=== PATIENT | female | born 1940 | race Caucasian/White ===

== ENCOUNTER 2017-05-08 15:00 | Inpatient (IN) | payer MEDICARE ==
[2017-05-08] MEDS ORDERED: HEPARIN for IV BOLUS 10,000 UNIT/10 ML VIAL. (15:16)
[2017-05-08] MEDS ORDERED: NITROGLYCERIN PREMIX 0 ML IV (15:16)
[2017-05-08] MEDS ORDERED: NITROGLYCERIN SUBLINGUAL 0.4 MG BOTTLE OF 25. SL ×3 (15:16→17:15)
[2017-05-08] MEDS ORDERED: HEPARIN 25,000UTS/500ML PREMIX 500 ML IV (15:17)
[2017-05-08 15:23] LABS: AGAP ISTAT 16 mmol/L (6-14); BUN ISTAT 16 mg/dL (8-26); CHLORIDE ISTAT 105 mmol/L (98-110); CREATININE ISTAT 1.1 mg/dL (0.5-1.4); GLUCOSE ISTAT 285 mg/dL (70-99); HEMATOCRIT ISTAT 40 % (36-40); HEMOGLOBIN ISTAT 13.6 g/dL (12-15); ION CA ISTAT 1.16 mmol/L (1.13-1.32); POTASSIUM ISTAT 4.1 mmol/L (3.5-5.0); SODIUM ISTAT 141 mmol/L (135-145); TOT CO2 ISTAT 25 mmol/L (23-32)
[2017-05-08] MEDS: ASPIRIN CHEWABLE 81 MG TABLET. PO ×2 (15:25→17:12)
[2017-05-08 15:27] LABS: ADD MAN DIFF? NO
[2017-05-08 15:28] LABS: BASO % 1 % (0-3); EOS # 0.1 x10^3/uL (0.0-0.7); EOS % 1 % (0-3); HEMATOCRIT 40.4 % (36.0-47.0); HEMOGLOBIN 13.2 g/dL (12.0-15.5); LYMPH # 1.4 x10^3/uL (1.0-4.8); LYMPH % 19 % (24-48); MEAN CORPUSCULAR HEMOGLOBIN 29 pg (25-35); MEAN CORPUSCULAR HGB CONC 33 g/dL (31-37); MEAN CORPUSCULAR VOLUME 90 fL (79-100); MONO # 0.7 x10^3/uL (0.0-1.1); MONO % 10 % (0-9); NEUT # 5.1 x10^3uL (1.8-7.7); NEUT % 70 % (31-73); PLATELET COUNT 195 x10^3/uL (140-400); RED BLOOD COUNT 4.49 x10^6/uL (3.50-5.40); RED CELL DISTRIBUTION WIDTH 14.5 % (11.5-14.5); WHITE BLOOD COUNT 7.4 x10^3/uL (4.0-11.0)
[2017-05-08 15:29] LABS: TROPONIN BY ISTAT 1.73 ng/ml (<0.08)
[2017-05-08] MEDS: HEPARIN for IV BOLUS 10,000 UNIT/10 ML VIAL. IV (15:29)
[2017-05-08] MEDS ORDERED: MORPHINE SULFATE 4 MG/ML DISP.SYRIN. IV ×2 (15:30→16:00)
[2017-05-08] MEDS ORDERED: ANTI-COAG MONITOR BY PHARMACY. MC (15:30)
[2017-05-08] MEDS ORDERED: LIDOCAINE 2% 20 ML VIAL. ×2 (15:36)
[2017-05-08] MEDS ORDERED: IOHEXOL 300 MG/ML 100ML VIAL. ×2 (15:36→16:15)
[2017-05-08] MEDS: HEPARIN 25,000UTS/500ML PREMIX 500 ML IV (15:39)
[2017-05-08 15:40] LABS: ANION GAP 10 (6-14); BLOOD UREA NITROGEN 16 mg/dL (7-20); CALCIUM 9.3 mg/dL (8.5-10.1); CARBON DIOXIDE 27 mmol/L (21-32); CHLORIDE 104 mmol/L (98-107); CREATININE 1.4 mg/dL (0.6-1.0); GFR 36.7; GLUCOSE 289 mg/dL (70-99); POTASSIUM 3.9 mmol/L (3.5-5.1); SODIUM 141 mmol/L (136-145)
[2017-05-08] MEDS ORDERED: MIDAZOLAM HCL/PF 2 MG/2 ML VIAL. (15:46)
[2017-05-08] MEDS ORDERED: fentaNYL PF VIAL 100 MCG/2 ML VIAL (15:46)
[2017-05-08 15:47] LABS: ALBUMIN 3.6 g/dL (3.4-5.0); ALK PHOS 82 U/L (46-116); ALT (SGPT) 33 U/L (14-59); AST (SGOT) 48 U/L (15-37); DIRECT BILIRUBIN < 0.1 mg/dL (0.0-0.2); LIPASE 107 U/L (73-393); TOTAL BILIRUBIN 0.4 mg/dL (0.2-1.0); TOTAL PROTEIN 7.6 g/dL (6.4-8.2)
[2017-05-08 15:48] LABS: PARTIAL THROMBOPLASTIN TIME 25 SEC (24-38); PROTHROMBIN TIME PATIENT 13.1 SEC (11.7-14.0)
[2017-05-08 15:51] LABS: TROPONINI 3.446 ng/mL (0.000-0.055)
[2017-05-08 15:52] LABS: NT-PRO BNP 1209 pg/mL (0-449)
[2017-05-08] MEDS: IV NORMAL SALINE 1000ML BAG 1,000 ML IV ×2 (16:00→17:46)
[2017-05-08] MEDS ORDERED: NITROGLYCERIN OINT 1 GM PACKET. (16:02)
[2017-05-08] MEDS: NITROGLYCERIN OINT 1 GM PACKET. TP (16:05)
[2017-05-08] MEDS ORDERED: BIVALIRUDIN 250 MG VIAL. IV (16:14)
[2017-05-08] MEDS: LIDOCAINE 2% 20 ML VIAL. IJ (16:15)
[2017-05-08] MEDS ORDERED: CONTRAST GIVEN MC (16:15)
[2017-05-08] MEDS: IOHEXOL 300 MG/ML 100ML VIAL. IART (16:15)
[2017-05-08] MEDS ORDERED: NITROGLYCERIN PREMIX 250 ML IV (16:19)
[2017-05-08] MEDS: NITROGLYCERIN PREMIX 250 ML IV ×3 (16:37→17:15)
[2017-05-08] MEDS ORDERED: TICAGRELOR 90 MG TABLET. (16:43)
[2017-05-08] MEDS: TICAGRELOR 90 MG TABLET. PO (17:12)
[2017-05-08] MEDS: BIVALIRUDIN 250 MG VIAL. IV (17:13)
[2017-05-08] MEDS: fentaNYL PF VIAL 100 MCG/2 ML VIAL IV (17:13)
[2017-05-08] MEDS ORDERED: LIDOCAINE 2% 100 MG/5 ML SYRINGE. IV (17:15)
[2017-05-08] MEDS ORDERED: ACETAMINOPHEN 325 MG TABLET. PO (17:15)
[2017-05-08] MEDS ORDERED: ATROPINE 0.5 MG/5 ML DISP.SYRINGE. IV (17:15)
[2017-05-08] MEDS ORDERED: 0.9 % SODIUM CHLORIDE 10 ML DISP.SYRIN. IV (17:15)
[2017-05-08] MEDS: LISINOPRIL 5 MG TABLET. PO ×3 (17:15→17:52)
[2017-05-08] MEDS ORDERED: AMIODARONE 150 MG in IV DEXTROSE 5% 100 ML IV (17:15)
[2017-05-08 19:45] LABS: TROPONINI 34.996 ng/mL (0.000-0.055)
[2017-05-08] MEDS: METOPROLOL TART IMMED RELEASE 25 MG TABLET. PO (20:26)
[2017-05-08] MEDS: ATORVASTATIN CALCIUM 20 MG TABLET PO (20:26)
[2017-05-09] MEDS: IV NORMAL SALINE 1000ML BAG 1,000 ML IV ×3 (02:00→19:27)
[2017-05-09 05:40] LABS: ADD MAN DIFF? NO
[2017-05-09 06:01] LABS: ANION GAP 9 (6-14); BLOOD UREA NITROGEN 12 mg/dL (7-20); CALCIUM 8.4 mg/dL (8.5-10.1); CARBON DIOXIDE 25 mmol/L (21-32); CHLORIDE 107 mmol/L (98-107); CHOLESTEROL 109 mg/dL (0-200); CHOLESTEROL/HDL RATIO 2.8; CREATININE 1.1 mg/dL (0.6-1.0); GFR 48.4; GLUCOSE 230 mg/dL (70-99); HDLC 39 mg/dL (40-60); LDLC 56 mg/dL (0-100); MAGNESIUM 1.4 mg/dL (1.8-2.4); NON-HDL CHOLESTEROL 70 mg/dL (0-129); POTASSIUM 3.7 mmol/L (3.5-5.1); SODIUM 141 mmol/L (136-145); TRIGLYCERIDES 70 mg/dL (0-150); VLDLC 14 mg/dL (0-40)
[2017-05-09 06:05] LABS: TROPONINI 17.158 ng/mL (0.000-0.055)
[2017-05-09] MEDS: fentaNYL PF VIAL 100 MCG/2 ML VIAL IV ×5 (06:06→23:32)
[2017-05-09 06:10] LABS: BASO % 0 % (0-3); EOS # 0.1 x10^3/uL (0.0-0.7); EOS % 2 % (0-3); HEMATOCRIT 31.1 % (36.0-47.0); LYMPH # 0.9 x10^3/uL (1.0-4.8); LYMPH % 17 % (24-48); MEAN CORPUSCULAR HEMOGLOBIN 29 pg (25-35); MEAN CORPUSCULAR HGB CONC 32 g/dL (31-37); MEAN CORPUSCULAR VOLUME 90 fL (79-100); MONO # 0.6 x10^3/uL (0.0-1.1); MONO % 12 % (0-9); NEUT # 3.8 x10^3uL (1.8-7.7); NEUT % 69 % (31-73); PLATELET COUNT 161 x10^3/uL (140-400); RED BLOOD COUNT 3.46 x10^6/uL (3.50-5.40); RED CELL DISTRIBUTION WIDTH 14.5 % (11.5-14.5); WHITE BLOOD COUNT 5.6 x10^3/uL (4.0-11.0)
[2017-05-09] MEDS: METOPROLOL TART IMMED RELEASE 25 MG TABLET. PO ×2 (07:59→21:42)
[2017-05-09] MEDS: ASPIRIN ENTERIC COATED 81 MG TABLET.DR. PO (07:59)
[2017-05-09] MEDS: TICAGRELOR 90 MG TABLET. PO ×2 (07:59→21:42)
[2017-05-09] MEDS: ONDANSETRON PF 4 MG/2 ML VIAL. IV (10:00)
[2017-05-09] MEDS: NITROGLYCERIN PREMIX 250 ML IV (11:00)
[2017-05-09 11:29] LABS: ALBUMIN 2.8 g/dL (3.4-5.0); ALBUMIN/GLOBULIN RATIO 0.8 (1.0-1.7); ALK PHOS 61 U/L (46-116); ALT (SGPT) 29 U/L (14-59); ANION GAP 11 (6-14); AST (SGOT) 55 U/L (15-37); BLOOD UREA NITROGEN 10 mg/dL (7-20); BUN/CREATININE RATIO 11 (6-20); CALCIUM 8.4 mg/dL (8.5-10.1); CARBON DIOXIDE 23 mmol/L (21-32); CHLORIDE 110 mmol/L (98-107); CREATININE 0.9 mg/dL (0.6-1.0); GLUCOSE 191 mg/dL (70-99); POTASSIUM 3.8 mmol/L (3.5-5.1); SODIUM 144 mmol/L (136-145); TOTAL BILIRUBIN 0.6 mg/dL (0.2-1.0); TOTAL PROTEIN 6.2 g/dL (6.4-8.2)
[2017-05-09] MEDS ORDERED: MIDAZOLAM HCL/PF 2 MG/2 ML VIAL. (12:05)
[2017-05-09] MEDS ORDERED: fentaNYL PF VIAL 100 MCG/2 ML VIAL (12:05)
[2017-05-09] MEDS: LIDOCAINE 2% 20 ML VIAL. IJ (12:15)
[2017-05-09] MEDS: IODIXANOL 320 MG/ML 100 ML VIAL. IART (12:15)
[2017-05-09] MEDS ORDERED: HEPARIN for IV BOLUS 10,000 UNIT/10 ML VIAL. (12:23)
[2017-05-09] MEDS ORDERED: hydrALAZINE 20 MG/ML VIAL. (12:42)
[2017-05-09] MEDS: MIDAZOLAM HCL/PF 2 MG/2 ML VIAL. IV (13:09)
[2017-05-09] MEDS: NITROGLYCERIN 200 MCG/2 ML SYRINGE FOR CATH/VASC LAB. IART (13:10)
[2017-05-09] MEDS: HEPARIN for IV BOLUS 10,000 UNIT/10 ML VIAL. IART (13:10)
[2017-05-09] MEDS: hydrALAZINE 20 MG/ML VIAL. IVP (13:10)
[2017-05-09] MEDS ORDERED: IOHEXOL 300 MG/ML 100ML VIAL. (13:25)
[2017-05-09] MEDS ORDERED: LIDOCAINE 2% 20 ML VIAL. (13:25)
[2017-05-09 14:15] LABS: ISTAT ACT 205 sec (92-181)
[2017-05-09 15:26] LABS: ISTAT ACT 172 sec (92-181)
[2017-05-09 18:15] LABS: MRSA BY PCR Negative (Negative)
[2017-05-09] MEDS: ATORVASTATIN CALCIUM 20 MG TABLET PO (21:42)
[2017-05-09] MEDS ORDERED: DEXTROSE 50% 25 GM / 50ML DISP.SYRIN. IV (23:15)
[2017-05-09] MEDS: ZOLPIDEM 5 MG TABLET. PO (23:18)
[2017-05-09 23:44] LABS: POC GLUCOSE 183 mg/dL (70-99)
[2017-05-10 03:20] LABS: ADD MAN DIFF? NO
[2017-05-10 03:27] LABS: BASO % 0 % (0-3); EOS # 0.1 x10^3/uL (0.0-0.7); EOS % 2 % (0-3); HEMOGLOBIN 10.2 g/dL (12.0-15.5); LYMPH # 0.9 x10^3/uL (1.0-4.8); LYMPH % 19 % (24-48); MEAN CORPUSCULAR HEMOGLOBIN 30 pg (25-35); MEAN CORPUSCULAR HGB CONC 33 g/dL (31-37); MEAN CORPUSCULAR VOLUME 90 fL (79-100); MONO # 0.5 x10^3/uL (0.0-1.1); MONO % 10 % (0-9); NEUT # 3.3 x10^3uL (1.8-7.7); NEUT % 69 % (31-73); PLATELET COUNT 158 x10^3/uL (140-400); RED BLOOD COUNT 3.45 x10^6/uL (3.50-5.40); RED CELL DISTRIBUTION WIDTH 14.6 % (11.5-14.5); WHITE BLOOD COUNT 4.8 x10^3/uL (4.0-11.0)
[2017-05-10] MEDS: INSULIN ASPART 300 UNITS/3 ML INSULN.PEN SQ (07:30)
[2017-05-10 08:16] LABS: TROPONINI 10.231 ng/mL (0.000-0.055)
[2017-05-10 08:34] LABS: POC GLUCOSE 123 mg/dL (70-99)
[2017-05-10] MEDS: ASPIRIN ENTERIC COATED 81 MG TABLET.DR. PO (08:37)
[2017-05-10] MEDS: TICAGRELOR 90 MG TABLET. PO (08:37)
[2017-05-10] MEDS: LISINOPRIL 5 MG TABLET. PO (08:37)
[2017-05-10] MEDS: METOPROLOL TART IMMED RELEASE 25 MG TABLET. PO (08:38)
== END 2017-05-10 12:15 | disposition home or self-care (01) | DRG 246 ==
LOC: ER 15:00 → 1 WEST ICU 15:37
PROC: 027034Z Dilation of Coronary Artery, One Artery with Drug-eluting Intraluminal Device, Percutaneous Approach (ICD-10-PCS; principal; 2017-05-08)
PROC: 027034Z Dilation of Coronary Artery, One Artery with Drug-eluting Intraluminal Device, Percutaneous Approach (ICD-10-PCS; 2017-05-08)
PROC: 4A023N7 Measurement of Cardiac Sampling and Pressure, Left Heart, Percutaneous Approach (ICD-10-PCS; 2017-05-08)
PROC: B2111ZZ Fluoroscopy of Multiple Coronary Arteries using Low Osmolar Contrast (ICD-10-PCS; 2017-05-08)
PROC: 4A023N7 Measurement of Cardiac Sampling and Pressure, Left Heart, Percutaneous Approach (ICD-10-PCS; 2017-05-09)
PROC: B2151ZZ Fluoroscopy of Left Heart using Low Osmolar Contrast (ICD-10-PCS; 2017-05-09)
DX: I21.3 ST elevation (STEMI) myocardial infarction of unspecified site (principal); N17.0 Acute kidney failure with tubular necrosis; E11.9 Type 2 diabetes mellitus without complications; E78.00 Pure hypercholesterolemia, unspecified; E78.5 Hyperlipidemia, unspecified; I10 Essential (primary) hypertension; I25.10 Atherosclerotic heart disease of native coronary artery without angina pectoris; Z96.659 Presence of unspecified artificial knee joint; F41.9 Anxiety disorder, unspecified; Z90.710 Acquired absence of both cervix and uterus; Z95.5 Presence of coronary angioplasty implant and graft
CPT/HCPCS: 36415; 71045; 80047; 80048; 80053; 80061; 80076; 82962; 83690; 83735; 83880; 84484; 85025; 85347; 85610; 85730; 87641; 92928; 93005; 93306; 93458; 96365; 97161-GP; 99152; 99153; 99291; 99291-25; C1713; C1725; C1769; C1887; C1892; J0360; J0583; J1644; J1815; J2250; J2405; J3010; J3490; J7030; J7050

== ENCOUNTER → 2017-11-13 | Outpatient (CLI) | payer MEDICARE ==
[2017-05-10 10:00] VITALS: BP 126/59
[~2017-11-13] MED LIST: ASPI-612 PO; ATOR20TA58 PO; LISI10TA2 PO; METO25TA4 PO; REGADENOSON 0.4 MG/5 ML DISP.SYRIN. IV ONE; TICA90TA PO
--- NOTE | 2017-11-13 13:34 | RAD ---
MR#: [id number] Date of Study: 11/13/2017 Ordering Physician: CHRISSY LONGORIA, Referring Physician: LANDY GUILLERMO Tech: LYNDA Ricci APPROVED REPORT Test Type: Pharmacological Stress Nurse/Tech: Janey Dinh RN Test Indications: Shortness of breath, recent [place] Cardiac History: Hypertension, Diabetes, Family history Medications: See Electronic Medical Record Medical History: See Electronic Medical Record Resting ECG: SR Resting Heart Rate: 61 bpm Resting Blood Pressure: 199/78mmHg Pretest Chest Pain: No chest pain Nurse/Tech Notes S1,S2 and lungs clear to auscultation. Consent: The procedure was explained to the patient in lay terms. Informed consent was witnessed. Julián eout was entered into [employer]. History and Stress Test performed by Paula Yu RMarkN. Pharm. Details Pharmacologic stress testing was performed using 0.4mg per 5ml of regadenoson given intravenously ove r 7-10 seconds. Stress Symptoms No chest pain or symptoms. POST EXERCISE Reason for Termination: Infusion complete Target HR: No Max HR: 86 bpm Max Blood Pressure: 207/64mmHg Blood Pressure response to exercise: Elevated blood pressure response during stress. Heart Rate response to exercise: WNL Chest Pain: No. Arrhythmia: No. INTERPRETATION Stress EKG Conclusion: The resting EKG shows a sinus rhythm and nonspecific ST segment changes. The stress EKG shows no significant changes from baseline. No EKG evidence of stressed induced ischemia. Imaging Protocol IMAGE PROTOCOL: Rest Tc-99m/stress Tc-99m 1 day Rest: Stress: Viability: Radiopharm.Tc99m JirtrgjgkKw78d Sestamibi Dose12.2mCi 34mCi Duration 17min. 13min. Img Date 11/13/2017 11/13/2017 Inj-Img Irfz31res. 75min. Rest Admin Site:IV - Left AntecubitalAdministrator:VANESSA Medina, ARRT (R)(N) Stress Admin Site: IV - Left AntecubitalAdministrator: VANESSA Medina, ARRT (R)(N) STRESS DATA End Diast. Vol.76.0mlLVEDV index BSA41.0ml End Syst. Vol.19.0mlLVESV index BSA10.0ml Myocardial Qeww576.0gEject. Giybheug54.0% Stress Scores Regional WT0.00Summed WT6.00 Regional WM0.00Summed WM0.00 LV Perfusion The stress images show borderline decreased uptake in the lateral wall. The resting images showed no significant defects. Nuclear imaging is suggestive but not diagnostic of lateral wall reversible ischemia. Wall Motion Left ventricular systolic function is normal with an ejection fraction of greater than 70%. LV Perf. Quant 17 Seg. SSS9.00 17 Seg. SRS5.00 17 Seg. SDS5.00 Stress Defect Extent (% LAD)0.00Rest Defect Extent (% LAD)0.00Rev. Defect Extent (% LAD)0.00 Stress Defect Extent (% LCX) 71.30Rest Defect Extent (% LCX)38.80Rev. Defect Extent (% LCX)36.30 Stress Defect Extent (% RCA)0.00Rest Defect Extent (% RCA)0.00Rev. Defect Extent (% RCA)0.00 Stress Defect Extent (% JAMIL)14.10Rest Defect Extent (% JAMIL)6.70Rev. Defect Extent (% JAMIL)6.50 Conclusion 1. No EKG evidence of stressed induced ischemia. 2. Nuclear imaging is suggestive but not diagnostic of the lateral wall reversible ischemia. 3. Normal left ventricular systolic function with an ejection fraction of greater than 70%. 4. Moderate risk Lexiscan nuclear stress test. Signed by : Chrissy Longoria MD Electronically Approved : 11/13/2017 13:32:39
== END | disposition home or self-care (01) ==
LOC: NM 09:17
PROVIDERS: ATTEND Internal Medicine Cardiovascular Disease
DX: I25.10 Atherosclerotic heart disease of native coronary artery without angina pectoris (principal); I25.2 Old myocardial infarction; I10 Essential (primary) hypertension; E11.9 Type 2 diabetes mellitus without complications; E78.5 Hyperlipidemia, unspecified; E78.00 Pure hypercholesterolemia, unspecified; Z83.3 Family history of diabetes mellitus
CPT/HCPCS: 78452; 93017; 96374; 96375; 96376; A9500; J2785

== ENCOUNTER → 2018-06-06 | Outpatient (CLI) | payer MEDICARE ==
[2017-05-10 10:00] VITALS: BP 126/59
[~2018-06-06] MED LIST changes: -REGADENOSON 0.4 MG/5 ML DISP.SYRIN. IV ONE
--- NOTE | 2018-06-06 16:57 | KCIC ---
MR of the left ankle HISTORY: Left fibular fracture. Left ankle pain. Difficulty with weightbearing. TECHNIQUE: Routine multiplanar sequences are obtained. FINDINGS: Nondisplaced fracture of the distal fibula, slightly oblique. The fracture line is clearly visualized. Anterior talofibular ligament is slightly thickened and heterogeneous compatible with a mild sprain but no rupture or displacement. Calcaneofibular ligament and posterior talofibular ligament are mildly thick and heterogeneous compatible with sprain or scarring. Anterior inferior tibiofibular ligament is thick and poorly defined compatible with a tear. Posterior inferior tibiofibular ligament also is ill-defined. Posterior tibial and flexor tendons are intact. No acute medial ligament tear. Anterior tibial and extensor tendons are intact. Achilles tendon intact with mild enthesophytes. Mild thickening of the plantar aponeurosis with prominently low signal compatible with mild chronic plantar fasciitis, and with subjacent enthesophytes at the calcaneus. Subtalar joints are patent. Tarsal sinus intact. Talar dome is intact. Small tibiotalar and subtalar joint effusions. No other fractures are identified. Os trigonum at the posterior talus without much edema. Mild degenerative spurring about the ankle. There is diffuse subcutaneous edema. Diffuse intramuscular edema or strain. There is a small complex soft tissue collection just lateral to the fibular fracture compatible with a small soft tissue hematoma. IMPRESSION: 1. Nondisplaced distal fibula fracture, clearly visualized. Correlate with date of trauma and radiographs regarding healing. 2. Sprain/scarring of lateral ankle ligaments. 3. At least partial tearing of the distal tibiofibular syndesmotic ligaments. 4. Mild chronic plantar fasciitis. Electronically signed by: Bridger Arita MD (06/06/2018 4:54 PM) [facility]-[email or web address]
--- NOTE | 2018-06-06 17:13 | KCIC ---
MR of the left tibia fibula HISTORY: Left fibular fracture. Pain with weightbearing, radiating up the leg. Known distal fibular fracture. TECHNIQUE: Routine multiplanar sequences are obtained. FINDINGS: The fracture of the distal fibula was reported in the MR the ankle, separate. No additional fractures of the more proximal tibia or fibula are identified. Muscle tissue is within normal limits. There is mild soft tissue and intramuscular edema about the distal fibular fracture. No organized fluid collection is seen. There is diffuse subcutaneous edema. IMPRESSION: 1. See separate MR ankle report. 2. No additional acute findings of the more proximal tibia and fibula. Electronically signed by: Bridger Arita MD (06/06/2018 5:11 PM) [facility]
== END | disposition home or self-care (01) ==
LOC: KCIC MRI 15:05
PROVIDERS: ATTEND Nurse Practitioner Adult Health
DX: S82.832A Other fracture of upper and lower end of left fibula, initial encounter for closed fracture (principal); S93.492A Sprain of other ligament of left ankle, initial encounter; S93.432A Sprain of tibiofibular ligament of left ankle, initial encounter; M25.48 Effusion, other site; M72.2 Plantar fascial fibromatosis; X58.XXXA Exposure to other specified factors, initial encounter; Y93.89 Activity, other specified; Y92.89 Other specified places as the place of occurrence of the external cause; Y99.8 Other external cause status
CPT/HCPCS: 73718; 73721

== ENCOUNTER 2019-10-08 13:57 | Inpatient (IN) | payer MEDICARE ==
[~2019-10-08] VITALS: Ht 170.2 cm; Wt 83.0 kg
[~2019-10-08 13:57] MED LIST changes: -ASPI-612 PO; +ASPI-886 PO
[2019-10-08 14:46] LABS: BASO % 0 % (0-3); EOS % 0 % (0-3); HEMATOCRIT 33.6 % (36.0-47.0); HEMOGLOBIN 11.3 g/dL (12.0-15.5); LYMPH # 0.7 x10^3/uL (1.0-4.8); LYMPH % 9 % (24-48); MEAN CORPUSCULAR HEMOGLOBIN 32 pg (25-35); MEAN CORPUSCULAR HGB CONC 34 g/dL (31-37); MEAN CORPUSCULAR VOLUME 94 fL (79-100); MONO # 0.8 x10^3/uL (0.0-1.1); MONO % 10 % (0-9); NEUT # 6.2 x10^3/uL (1.8-7.7); NEUT % 81 % (31-73); PLATELET COUNT 159 x10^3/uL (140-400); RED BLOOD COUNT 3.56 x10^6/uL (3.50-5.40); RED CELL DISTRIBUTION WIDTH 13.5 % (11.5-14.5); WHITE BLOOD COUNT 7.7 x10^3/uL (4.0-11.0)
[2019-10-08 14:55] LABS: PROTHROMBIN TIME PATIENT 14.5 SEC (11.7-14.0)
[2019-10-08 15:03] LABS: CALCIUM 8.6 mg/dL (8.5-10.1); CREATININE 1.6 mg/dL (0.6-1.0); GFR 31.3; POTASSIUM 4.3 mmol/L (3.5-5.1)
[2019-10-08 15:09] LABS: ALBUMIN 3.1 g/dL (3.4-5.0); ALBUMIN/GLOBULIN RATIO 0.8 (1.0-1.7); TOTAL BILIRUBIN 0.7 mg/dL (0.2-1.0)
--- NOTE | 2019-10-08 15:22 | RAD ---
EXAM: PORTABLE CHEST 1V INDICATION: Reason: dyspnea, chest pain / Spl. Instructions: / History: . TECHNIQUE: Single view COMPARISON: Chest x-ray of 05/08/2017 FINDINGS: Interval enlargement of the cardiac silhouette. The great vessels appear unremarkable. There is no hilar or mediastinal mass. Lungs show interval engorgement of the pulmonary vessels with hazy opacity of the bilateral lung bases. No pneumothorax. Small bilateral pleural effusions are new. There are no significant osseous abnormalities. IMPRESSION: Evidence of developing CHF. Electronically signed by: Vincent Chance MD (10/08/2019 3:19 PM) [id number]
--- NOTE | 2019-10-08 15:39 | EKG ---
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
--- NOTE | 2019-10-08 15:56 | PHYS DOC ---
Past Medical History Past Medical History: Anxiety, CAD, Diabetes-Type II, High Cholesterol, Hypertension Past Surgical History: Hysterectomy, Other Additional Past Surgical Histo: cardiac stents, r knee Smoking Status: Never Smoker Alcohol Use: Occasionally Drug Use: None General Adult EDM: Chief Complaint: FEVER HPI: HPI: Patient is a 79 year old [f__sex] who presents with [] Review of Systems: Review of Systems: Constitutional: Denies fever or chills. [] Eyes: Denies change in visual acuity. [] HENT: Denies nasal congestion or sore throat. [] Respiratory: Denies cough or shortness of breath. [] Cardiovascular: Denies chest pain or edema. [] GI: Denies abdominal pain, nausea, vomiting, bloody stools or diarrhea. [] : Denies dysuria. [] Musculoskeletal: Denies back pain or joint pain. [] Integument: Denies rash. [] Neurologic: Denies headache, focal weakness or sensory changes. [] Endocrine: Denies polyuria or polydipsia. [] Lymphatic: Denies swollen glands. [] Psychiatric: Denies depression or anxiety. [] Heart Score: Risk Factors: Risk Factors: DM, Current or recent (<one month) smoker, HTN, HLP, family history of CAD, obesity. Risk Scores: Score 0 - 3: 2.5% MACE over next 6 weeks - Discharge Home Score 4 - 6: 20.3% MACE over next 6 weeks - Admit for Clinical Observation Score 7 - 10: 72.7% MACE over next 6 weeks - Early Invasive Strategies Current Medications: Current Medications Medications (Trade) Dose Ordered Sig/[facility] Start Time Stop Time Status Last Admin Dose Admin Aspirin (Martinez Aspirin) 325 mg 1X ONCE 10/08/19 16:00 10/08/19 16:01 Bumetanide (Bumex) 1 mg 1X ONCE 10/08/19 16:00 10/08/19 16:01 Nitroglycerin (Nitro-Bid Oint) 0.5 inch 1X ONCE 10/08/19 16:00 10/08/19 16:01 Allergies: Allergies: Allergies Coded Allergies Type Severity Reaction Last Updated Verified No Known Drug Allergies 05/08/17 No Physical Exam: PE: Constitutional: Well developed, well nourished, no acute distress, non-toxic appearance. [] HENT: Normocephalic, atraumatic, bilateral external ears normal, oropharynx moist, no oral exudates, nose normal. [] Eyes: PERRLA, EOMI, conjunctiva normal, no discharge. [] Neck: Normal range of motion, no tenderness, supple, no stridor. [] Cardiovascular:Heart rate regular rhythm, no murmur [] Lungs & Thorax: Bilateral breath sounds clear to auscultation [] Abdomen: Bowel sounds normal, soft, no tenderness, no masses, no pulsatile masses. [] Skin: Warm, dry, no erythema, no rash. [] Back: No tenderness, no CVA tenderness. [] Extremities: No tenderness, no cyanosis, no clubbing, ROM intact, no edema. [] Neurologic: Alert and oriented X 3, normal motor function, normal sensory function, no focal deficits noted. [] Psychologic: Affect normal, judgement normal, mood normal. [] Current Patient Data: Labs: Laboratory Tests Test 10/08/19 14:14 White Blood Count 7.7 x10^3/uL (4.0-11.0) Red Blood Count 3.56 x10^6/uL (3.50-5.40) Hemoglobin 11.3 g/dL (12.0-15.5) L Hematocrit 33.6 % (36.0-47.0) L Mean Corpuscular Volume 94 fL (79-100) Mean Corpuscular Hemoglobin 32 pg (25-35) Mean Corpuscular Hemoglobin Concent 34 g/dL (31-37) Red Cell Distribution Width 13.5 % (11.5-14.5) Platelet Count 159 x10^3/uL (140-400) Neutrophils (%) (Auto) 81 % (31-73) H Lymphocytes (%) (Auto) 9 % (24-48) L Monocytes (%) (Auto) 10 % (0-9) H Eosinophils (%) (Auto) 0 % (0-3) Basophils (%) (Auto) 0 % (0-3) Neutrophils # (Auto) 6.2 x10^3/uL (1.8-7.7) Lymphocytes # (Auto) 0.7 x10^3/uL (1.0-4.8) L Monocytes # (Auto) 0.8 x10^3/uL (0.0-1.1) Eosinophils # (Auto) 0.0 x10^3/uL (0.0-0.7) Basophils # (Auto) 0.0 x10^3/uL (0.0-0.2) Prothrombin Time 14.5 SEC (11.7-14.0) H Prothrombin Time INR 1.2 (0.8-1.1) H Activated Partial Thromboplast Time 24 SEC (24-38) D-Dimer (Jamila) 1.01 ug/mlFEU (0.00-0.50) H Sodium Level 136 mmol/L (136-145) Potassium Level 4.3 mmol/L (3.5-5.1) Chloride Level 103 mmol/L (98-107) Carbon Dioxide Level 23 mmol/L (21-32) Anion Gap 10 (6-14) Blood Urea Nitrogen 20 mg/dL (7-20) Creatinine 1.6 mg/dL (0.6-1.0) H Estimated GFR (Cockcroft-Gault) 31.3 BUN/Creatinine Ratio 13 (6-20) Glucose Level 210 mg/dL (70-99) H Lactic Acid Level 1.7 mmol/L (0.4-2.0) Calcium Level 8.6 mg/dL (8.5-10.1) Total Bilirubin 0.7 mg/dL (0.2-1.0) Aspartate Amino Transferase (AST) 33 U/L (15-37) Alanine Aminotransferase (ALT) 32 U/L (14-59) Alkaline Phosphatase 80 U/L (46-116) Creatine Kinase 125 U/L (26-192) Creatine Kinase MB (Mass) 1.3 ng/mL (0.0-3.6) Creatine Kinase MB Relative Index 1.0 % (0-4) Troponin I Quantitative < 0.017 ng/mL (0.000-0.055) PW-Lka-N-Type Natriuretic Peptide 2933 pg/mL (0-449) H Total Protein 7.0 g/dL (6.4-8.2) Albumin 3.1 g/dL (3.4-5.0) L Albumin/Globulin Ratio 0.8 (1.0-1.7) L Laboratory Tests 10/08/19 14:14 Laboratory Tests 10/08/19 14:14 Vital Signs: Vital Signs Date Time Temp Pulse Resp B/P (MAP) Pulse Ox O2 Delivery O2 Flow Rate FiO2 10/08/19 14:21 99.1 73 36 173/73 (106) 94 Nasal Cannula 6.0 99.1 EKG: EKG: @1409 NSR at 72bpm, NO ST elevation, QRS 76ms, QT/QTc 404/444ms, baseline artifact noted Radiology/Procedures: Radiology/Procedures: PROCEDURE: PORTABLE CHEST 1V EXAM: PORTABLE CHEST 1V INDICATION: Reason: dyspnea, chest pain / Spl. Instructions: / History: . TECHNIQUE: Single view COMPARISON: Chest x-ray of 05/08/2017 FINDINGS: Interval enlargement of the cardiac silhouette. The great vessels appear unremarkable. There is no hilar or mediastinal mass. Lungs show interval engorgement of the pulmonary vessels with hazy opacity of the bilateral lung bases. No pneumothorax. Small bilateral pleural effusions are new. There are no significant osseous abnormalities. IMPRESSION: Evidence of developing CHF. Electronically signed by: Vincent Chance MD (10/08/2019 3:19 PM) [id number] Course & Med Decision Making: Course & Med Decision Making Pertinent Labs and Imaging studies reviewed. (See chart for details) [] Dragon Disclaimer: Dragon Disclaimer: This electronic medical record was generated, in whole or in part, using a voice recognition dictation system. Departure Departure Impression: Primary Impression: Acute exacerbation of CHF (congestive heart failure) Qualified Codes: I50.9 - Heart failure, unspecified Additional Impressions: Elevated d-dimer Hypoxia Suspected 2019 novel coronavirus infection Disposition: ADMITTED INPATIENT Admitting Physician: YESENIA (Goins) Condition: GUARDED Referrals: RADHA BAIRD MD (PCP) Justicifation of Admission Dx: Justifications for Admission: Justification of Admission Dx: Yes Comments: CHF exacerbation, Hypoxia, COVID PUI, Elevated d-dimer COVID-19 Assessment: COVID-19 Patient Risks: Age 65 or older: Yes Sign of co-morbidity: Yes Exp to person + for COVID: No Exp to PUI: No Travel from affected area: No Lower respiratory symptoms: Yes Fever: Yes PPE Use: Full PPE with N95 mask or PAPR: Yes Critical Care Time Critical care time was 30 minutes which includes time at bedside, spent in discussion of patient's care with specialists and/or family members, with interpretation of laboratory and/or radiological studies and is exclusive of procedures. ROLANDO VOGT DO Oct 08, 2019 15:56
[2019-10-08] MEDS ORDERED: BUMETANIDE 1 MG/4 ML VIAL. IV ONE (16:00)
[2019-10-08] MEDS ORDERED: ONDANSETRON PF 4 MG/2 ML VIAL. IV PRN (16:00)
[2019-10-08] MEDS ORDERED: NITROGLYCERIN OINT 1 GM PACKET. TP ONE (16:00)
[2019-10-08] MEDS ORDERED: ACETAMINOPHEN 325 MG TABLET. PO PRN (16:00)
[2019-10-08] MEDS ORDERED: DEXTROSE 50% 25 GM / 50ML DISP.SYRIN. IV PRN (16:00)
[2019-10-08] MEDS ORDERED: ASPIRIN 325 MG TABLET PO ONE (16:00)
[2019-10-08] MEDS ORDERED: ACETAMINOPHEN 500 MG TABLET PO ONE (16:00)
[2019-10-08] MEDS: INSULIN LISPRO 300 UNITS/3 ML VIAL. SQ SCH (17:00)
--- NOTE | 2019-10-08 18:19 | RAD ---
PULMONARY PERFUSION IMG PARTIC History:Reason: SOA, elevated [id number] NOTIFIED / Spl. Instructions: / History: Comparison: Chest x-ray October 08, 2019 Findings: Perfusion examination was performed. Ventilation images were not obtained due to Covid protocol. Perfusion images were acquired after the patient was injected with 5 mCi of technetium 99m MAA. Normal ventilation images. No mismatched perfusion defect is identified. Impression: 1. Very low probability for pulmonary embolic disease. Electronically signed by: Evaristo Hernandez DO (10/08/2019 6:16 PM) [facility]
[2019-10-08 18:43] LABS: BILIRUBIN,URINE NEGATIVE (NEG); CLARITY,URINE CLEAR; COLOR,URINE YELLOW; NITRITE,URINE NEGATIVE (NEG); PH,URINE 5.5 (<5.0-8.0); PROTEIN,URINE NEGATIVE (NEG-TRACE)
[2019-10-08 18:48] LABS: BACTERIA,URINE MODERATE /HPF (0-FEW); RBC,URINE 0 /HPF (0-2); SQUAMOUS EPITHELIAL CELL,UR FEW /LPF
[2019-10-08 18:49] LABS: WBC,URINE OCC /HPF (0-4)
--- NOTE | 2019-10-08 20:19 | PDOC1 ---
History and Physical Date of Service: DOS: DATE: 10/08/19 TIME: 20:04 Chief Complaint: Chief Complain: Chest pressure and fluid overload History of Present Illness: HPI: Patient is a 79-year-old female with past medical history of CAD with stent placement, diabetes type 2, dyslipidemia, hypertension, possible CHF who presents to the ED with chest pressure and feeling like she is fluid overloaded. EMS did pick her up at the patient's doctor's office and was told that her O2 was saturating at the 80s and at that time she was wearing 2 to 4 L of oxygen. Patient was given aspirin during her transportation. Patient did also have her temperature taken and it was reported at 101. Her temperature in the ED was 99.1. Patient denies any recent COVID contacts. Denies fevers, shortness of breath, abdominal pain, diarrhea, loss of smell, dysuria, or bloody stools or syncope. Past Medical/Surgical History: PMH/PSH: Past Medical History: Anxiety, CAD, Diabetes-Type II, High Cholesterol, Hypertension Past Surgical History: Hysterectomy, cardiac stents Allergies: Allergies: Coded Allergies: No Known Drug Allergies (Unverified , 05/08/17) Family History: Family History: Reviewed and none reported Social History: Social History: Smoking Status: Never Smoker Alcohol Use: Occasionally Drug Use: None Current Medications: Current Medications Current Medications Aspirin (Martinez Aspirin) 325 mg 1X ONCE PO Last administered on 10/08/19at 16:30; Start 10/08/19 at 16:00; Stop 10/08/19 at 16:01; Status DC Bumetanide (Bumex) 1 mg 1X ONCE IV Last administered on 10/08/19at 16:31; Start 10/08/19 at 16:00; Stop 10/08/19 at 16:01; Status DC Nitroglycerin (Nitro-Bid Oint) 0.5 inch 1X ONCE TP Last administered on 10/08/19at 16:00; Start 10/08/19 at 16:00; Stop 10/08/19 at 16:01; Status DC Acetaminophen (Tylenol) 500 mg 1X ONCE PO Last administered on 10/08/19at 16:31; Start 10/08/19 at 16:00; Stop 10/08/19 at 16:01; Status DC Ondansetron HCl (Zofran) 4 mg PRN Q8HRS PRN IV NAUSEA/VOMITING; Start 10/08/19 at 16:00; Stop 10/09/19 at 15:59 Acetaminophen (Tylenol) 650 mg PRN Q4HRS PRN PO FEVER > 100.3'F; Start 10/08/19 at 16:00; Stop 10/09/19 at 15:59 Insulin Human Lispro (HumaLOG) 0-5 UNITS TIDWMEALS SQ ; Start 10/08/19 at 17:00 Dextrose (Dextrose 50%-Water Syringe) 12.5 gm PRN Q15MIN PRN IV SEE COMMENTS; Start 10/08/19 at 16:00 Enoxaparin Sodium (Lovenox 40mg Syringe) 40 mg Q24H SQ ; Start 10/08/19 at 21:00 Active Scripts Active Reported Atorvastatin Calcium 20 Mg Tablet 20 Mg PO HS Brilinta (Ticagrelor) 90 Mg Tablet 90 Mg PO BID Lisinopril 10 Mg Tablet 10 Mg PO DAILY Aspirin Ec (Aspirin) 81 Mg Tablet.dr 81 Mg PO DAILY Metoprolol Tartrate 25 Mg Tablet 12.5 Mg PO BID ROS: Review of Systems Review of System REVIEW OF SYSTEMS: GENERAL: Denies weakness SKIN: No bruising, hair changes or rashes. EYES: No blurred, double or loss of vision. NOSE AND THROAT: No history of nosebleeds, hoarseness or sore throat. HEART: No history of palpitations, chest pain or shortness of breath on exertion. LUNGS: Denies cough, hemoptysis, wheezing or shortness of breath. GASTROINTESTINAL: Denies changes in appetite, nausea, vomiting, diarrhea or constipation. GENITOURINARY: No history of frequency, urgency, hesitancy or nocturia. NEUROLOGIC: Denies history of numbness, tingling, or tremor. PSYCHIATRIC: No history of panic, anxiety or depression. ENDOCRINE: No history of heat or cold intolerance, polyuria or polydipsia. EXTREMITIES: Denies joint pain, pain on walking or stiffness. Physical Exam: Vital Signs: Vital Signs Date Time Temp Pulse Resp B/P (MAP) Pulse Ox O2 Delivery O2 Flow Rate FiO2 10/08/19 18:16 94 151/67 (95) 94 High Flow Nasal Cannula 10.0 10/08/19 14:21 99.1 36 99.1 Physcial Exam: GEN: No apparent distress. Alert and oriented HEENT: Normal cephalic, atraumatic, external auditory canals are patent EYES: Extraocular muscles are intact, pupil are equally round and reactive to light and accommodation MUSCULOSKELETAL: Well developed , well nourished, good range of motion ENDOCRINE: No thyromegaly was palpated LYMPHATICS: No cervical chain or axillary nodes were noted HEMATOPOIETIC: No bruising NECK: Supple, no JVD, no thyromegaly was noted LUNGS: Clear to auscultation in all lung benito without rhonchi or wheezing HEART: RRR, S!, S2 present. Peripheral pulses intact, no obvious murmurs noted ABDOMEN: Soft, nontender. Positive bowel sounds, no organomegaly, normal bowel sounds EXTREMITIES: Without clubbing, cyanosis, or edema. Pedal pulses intact. Negative Homans sign NEUROLOGIC: Normal speech and tone. A&O x 3, moves all extremities, no obvious focal deficits PSYCHIATRIC: Normal affect, normal mood. Stable SKIN: No ulcerations or rashes, good skin turgor, no jaundice VASCULAR: Good capillary refill, neurovascular bundle appears to be intact Labs: Labs: Laboratory Tests Test 10/08/19 14:14 10/08/19 18:17 White Blood Count 7.7 x10^3/uL (4.0-11.0) Red Blood Count 3.56 x10^6/uL (3.50-5.40) Hemoglobin 11.3 g/dL (12.0-15.5) Hematocrit 33.6 % (36.0-47.0) Mean Corpuscular Volume 94 fL (79-100) Mean Corpuscular Hemoglobin 32 pg (25-35) Mean Corpuscular Hemoglobin Concent 34 g/dL (31-37) Red Cell Distribution Width 13.5 % (11.5-14.5) Platelet Count 159 x10^3/uL (140-400) Neutrophils (%) (Auto) 81 % (31-73) Lymphocytes (%) (Auto) 9 % (24-48) Monocytes (%) (Auto) 10 % (0-9) Eosinophils (%) (Auto) 0 % (0-3) Basophils (%) (Auto) 0 % (0-3) Neutrophils # (Auto) 6.2 x10^3/uL (1.8-7.7) Lymphocytes # (Auto) 0.7 x10^3/uL (1.0-4.8) Monocytes # (Auto) 0.8 x10^3/uL (0.0-1.1) Eosinophils # (Auto) 0.0 x10^3/uL (0.0-0.7) Basophils # (Auto) 0.0 x10^3/uL (0.0-0.2) Prothrombin Time 14.5 SEC (11.7-14.0) Prothromb Time International Ratio 1.2 (0.8-1.1) Activated Partial Thromboplast Time 24 SEC (24-38) D-Dimer (Jamila) 1.01 ug/mlFEU (0.00-0.50) Sodium Level 136 mmol/L (136-145) Potassium Level 4.3 mmol/L (3.5-5.1) Chloride Level 103 mmol/L (98-107) Carbon Dioxide Level 23 mmol/L (21-32) Anion Gap 10 (6-14) Blood Urea Nitrogen 20 mg/dL (7-20) Creatinine 1.6 mg/dL (0.6-1.0) Estimated GFR (Cockcroft-Gault) 31.3 BUN/Creatinine Ratio 13 (6-20) Glucose Level 210 mg/dL (70-99) Lactic Acid Level 1.7 mmol/L (0.4-2.0) Calcium Level 8.6 mg/dL (8.5-10.1) Total Bilirubin 0.7 mg/dL (0.2-1.0) Aspartate Amino Transf (AST/SGOT) 33 U/L (15-37) Alanine Aminotransferase (ALT/SGPT) 32 U/L (14-59) Alkaline Phosphatase 80 U/L (46-116) Creatine Kinase 125 U/L (26-192) Creatine Kinase MB (Mass) 1.3 ng/mL (0.0-3.6) Creatine Kinase MB Relative Index 1.0 % (0-4) Troponin I Quantitative < 0.017 ng/mL (0.000-0.055) ZQ-Qfi-V-Type Natriuretic Peptide 2933 pg/mL (0-449) Total Protein 7.0 g/dL (6.4-8.2) Albumin 3.1 g/dL (3.4-5.0) Albumin/Globulin Ratio 0.8 (1.0-1.7) Urine Collection Type Unknown Urine Color Yellow Urine Clarity Clear Urine pH 5.5 (<5.0-8.0) Urine Specific [place] 1.010 (1.000-1.030) Urine Protein Negative mg/dL (NEG-TRACE) Urine Glucose (UA) 100 mg/dL (NEG) Urine Ketones (Stick) Negative mg/dL (NEG) Urine Blood Negative (NEG) Urine Nitrite Negative (NEG) Urine Bilirubin Negative (NEG) Urine Urobilinogen Dipstick 1.0 mg/dL (0.2 mg/dL) Urine Leukocyte Esterase Negative (NEG) Urine RBC 0 /HPF (0-2) Urine WBC Occ /HPF (0-4) Urine Squamous Epithelial Cells Few /LPF Urine Bacteria Moderate /HPF (0-FEW) Laboratory Tests Test 10/08/19 14:14 10/08/19 18:17 White Blood Count 7.7 x10^3/uL (4.0-11.0) Red Blood Count 3.56 x10^6/uL (3.50-5.40) Hemoglobin 11.3 g/dL (12.0-15.5) Hematocrit 33.6 % (36.0-47.0) Mean Corpuscular Volume 94 fL (79-100) Mean Corpuscular Hemoglobin 32 pg (25-35) Mean Corpuscular Hemoglobin Concent 34 g/dL (31-37) Red Cell Distribution Width 13.5 % (11.5-14.5) Platelet Count 159 x10^3/uL (140-400) Neutrophils (%) (Auto) 81 % (31-73) Lymphocytes (%) (Auto) 9 % (24-48) Monocytes (%) (Auto) 10 % (0-9) Eosinophils (%) (Auto) 0 % (0-3) Basophils (%) (Auto) 0 % (0-3) Neutrophils # (Auto) 6.2 x10^3/uL (1.8-7.7) Lymphocytes # (Auto) 0.7 x10^3/uL (1.0-4.8) Monocytes # (Auto) 0.8 x10^3/uL (0.0-1.1) Eosinophils # (Auto) 0.0 x10^3/uL (0.0-0.7) Basophils # (Auto) 0.0 x10^3/uL (0.0-0.2) Prothrombin Time 14.5 SEC (11.7-14.0) Prothromb Time International Ratio 1.2 (0.8-1.1) Activated Partial Thromboplast Time 24 SEC (24-38) D-Dimer (Jamila) 1.01 ug/mlFEU (0.00-0.50) Sodium Level 136 mmol/L (136-145) Potassium Level 4.3 mmol/L (3.5-5.1) Chloride Level 103 mmol/L (98-107) Carbon Dioxide Level 23 mmol/L (21-32) Anion Gap 10 (6-14) Blood Urea Nitrogen 20 mg/dL (7-20) Creatinine 1.6 mg/dL (0.6-1.0) Estimated GFR (Cockcroft-Gault) 31.3 BUN/Creatinine Ratio 13 (6-20) Glucose Level 210 mg/dL (70-99) Lactic Acid Level 1.7 mmol/L (0.4-2.0) Calcium Level 8.6 mg/dL (8.5-10.1) Total Bilirubin 0.7 mg/dL (0.2-1.0) Aspartate Amino Transf (AST/SGOT) 33 U/L (15-37) Alanine Aminotransferase (ALT/SGPT) 32 U/L (14-59) Alkaline Phosphatase 80 U/L (46-116) Creatine Kinase 125 U/L (26-192) Creatine Kinase MB (Mass) 1.3 ng/mL (0.0-3.6) Creatine Kinase MB Relative Index 1.0 % (0-4) Troponin I Quantitative < 0.017 ng/mL (0.000-0.055) BC-Hfl-R-Type Natriuretic Peptide 2933 pg/mL (0-449) Total Protein 7.0 g/dL (6.4-8.2) Albumin 3.1 g/dL (3.4-5.0) Albumin/Globulin Ratio 0.8 (1.0-1.7) Urine Collection Type Unknown Urine Color Yellow Urine Clarity Clear Urine pH 5.5 (<5.0-8.0) Urine Specific [place] 1.010 (1.000-1.030) Urine Protein Negative mg/dL (NEG-TRACE) Urine Glucose (UA) 100 mg/dL (NEG) Urine Ketones (Stick) Negative mg/dL (NEG) Urine Blood Negative (NEG) Urine Nitrite Negative (NEG) Urine Bilirubin Negative (NEG) Urine Urobilinogen Dipstick 1.0 mg/dL (0.2 mg/dL) Urine Leukocyte Esterase Negative (NEG) Urine RBC 0 /HPF (0-2) Urine WBC Occ /HPF (0-4) Urine Squamous Epithelial Cells Few /LPF Urine Bacteria Moderate /HPF (0-FEW) Images: Images CXR IMPRESSION: Evidence of developing CHF. VQ scan Impression: 1. Very low probability for pulmonary embolic disease. Assessment/Plan Assessment/Plan Acute CHF exacerbation Chronic CHF, unknown EF CAD Diabetes mellitus type 2 Normocytic anemia Acute kidney injury due to vasomotor nephropathy Moderate malnutrition Admit to medicine Cardiology consult IV diuresis Strict I's and O's Salt restriction Daily weights R ISS and Accu-Cheks Avoid nephrotoxic agents Lovenox for DVT prophylaxis ADA diet Full code Discussed with RN and SW Disposition inpatient care pending cardiology evaluation Surrogate decision maker is self Justifications for Admission Other Justification SHANNAN OVIEDO MD Oct 08, 2019 20:19
[2019-10-08 23:00] VITALS: BP 134/61
[2019-10-08] MEDS: THIAMINE INJ 100 MG in IV DEXTROSE 5% 50 ML IV SCH (23:33)
[2019-10-08] MEDS: ENOXAPARIN 40 MG/0.4 ML SYRINGE. SQ SCH (23:34)
[2019-10-09 03:00] VITALS: BP 179/78
[2019-10-09 05:29] LABS: CHOLESTEROL/HDL RATIO 2.4
[2019-10-09 07:00] VITALS: BP 185/77
[2019-10-09] MEDS: INSULIN LISPRO 300 UNITS/3 ML VIAL. SQ SCH ×3 (08:00→11:03)
[2019-10-09] MEDS: THIAMINE INJ 100 MG in IV DEXTROSE 5% 50 ML IV SCH (09:00)
--- NOTE | 2019-10-09 09:04 | PDOC2 ---
TYLER CARRASCO LEAD INVESTIGATOR 10/09/19 0904: CARDIAC CONSULT DATE OF CONSULT Date of Consult DATE: 10/09/19 TIME: 08:55 REASON FOR CONSULT Reason for Consult: CHF exac, hypoxia REFERRING PHYSICIAN Referring Physician: Buster SOURCE Source: Chart review HISTORY OF PRESENT ILLNESS HISTORY OF PRESENT ILLNESS This is a pleasant 79 yo female admitted for complains of shortness of breath. Reports of increasing leg edema, insmonia in the last few days. wt gain of 6 pounds in 1 day, SOA but no palpitations, chest pain. She has been urinating more and she does not take any diuretics. Her BP has been good at home and controlled. She does not eat much salty foods or processed meals. She received some diuretic and has improved. PAST MEDICAL HISTORY Cardiovascular: CAD, HTN, HI Pulmonary: No pertinent hx CENTRAL NERVOUS SYSTEM: Other (No pertinent history) GI: GERD Psych: Anxiety Musculoskeletal: Osteoarthritis Renal/: UTI Endocrine: Diabetes (2) PAST SURGICAL HISTORY Past Surgical History: Total knee replacement (right), Hysterectomy, Other (PCI) FAMILY HISTORY Family History: Diabetes, Heart Disease SOCIAL HISTORY Smoke: No ALCOHOL: occassional Drugs: None Lives: with Family CURRENT MEDICATIONS CURRENT MEDICATIONS Current Medications Medications (Trade) Dose Ordered Sig/Scotty Route PRN Reason Start Time Stop Time Status Last Admin Dose Admin Aspirin (Martinez Aspirin) 325 mg 1X ONCE PO 10/08/19 16:00 10/08/19 16:01 DC 10/08/19 16:30 Bumetanide (Bumex) 1 mg 1X ONCE IV 10/08/19 16:00 10/08/19 16:01 DC 10/08/19 16:31 Nitroglycerin (Nitro-Bid Oint) 0.5 inch 1X ONCE TP 10/08/19 16:00 10/08/19 16:01 DC 10/08/19 16:00 Acetaminophen (Tylenol) 500 mg 1X ONCE PO 10/08/19 16:00 10/08/19 16:01 DC 10/08/19 16:31 Enoxaparin Sodium (Lovenox 40mg Syringe) 40 mg Q24H SQ 10/08/19 21:00 10/08/19 23:34 Thiamine HCl 100 mg/Dextrose 51 ml @ 102 mls/hr DAILY IV 10/08/19 21:00 10/08/19 23:33 ALLERGIES ALLERGIES: Coded Allergies: No Known Drug Allergies (Unverified , 05/08/17) ROS Review of System 14 point ROS evaluated with pertinent positives noted per HPI PHYSICAL EXAM General: Alert, Oriented X3, Cooperative, mild distress HEENT: Atraumatic, Mucous membr. moist/pink Lungs: Other (diminished) Heart: Regular rate (SR) Abdomen: Soft Extremities: No cyanosis, Other (trace LE edema) Skin: No breakdown Neuro: Normal speech, Sensation intact Psych/Mental Status: Mental status NL, Mood NL MUSCULOSKELETAL: Osteoarthritic changes both hands VITALS/I&O VITALS/I&O: Vital Signs Date Time Temp Pulse Resp B/P (MAP) Pulse Ox O2 Delivery O2 Flow Rate FiO2 10/09/19 03:00 98.8 82 16 179/78 (111) 91 Room Air 98.8 10/08/19 23:00 12.0 I & O 10/08/19 10/08/19 10/09/19 15:00 23:00 07:00 Output Total 800 ml Balance -800 ml LABS Lab: Laboratory Tests Test 10/08/19 14:14 10/08/19 18:17 10/08/19 20:00 10/08/19 23:42 White Blood Count 7.7 x10^3/uL (4.0-11.0) Red Blood Count 3.56 x10^6/uL (3.50-5.40) Hemoglobin 11.3 g/dL (12.0-15.5) L Hematocrit 33.6 % (36.0-47.0) L Mean Corpuscular Volume 94 fL (79-100) Mean Corpuscular Hemoglobin 32 pg (25-35) Mean Corpuscular Hemoglobin Concent 34 g/dL (31-37) Red Cell Distribution Width 13.5 % (11.5-14.5) Platelet Count 159 x10^3/uL (140-400) Neutrophils (%) (Auto) 81 % (31-73) H Lymphocytes (%) (Auto) 9 % (24-48) L Monocytes (%) (Auto) 10 % (0-9) H Eosinophils (%) (Auto) 0 % (0-3) Basophils (%) (Auto) 0 % (0-3) Neutrophils # (Auto) 6.2 x10^3/uL (1.8-7.7) Lymphocytes # (Auto) 0.7 x10^3/uL (1.0-4.8) L Monocytes # (Auto) 0.8 x10^3/uL (0.0-1.1) Eosinophils # (Auto) 0.0 x10^3/uL (0.0-0.7) Basophils # (Auto) 0.0 x10^3/uL (0.0-0.2) Prothrombin Time 14.5 SEC (11.7-14.0) H Prothrombin Time INR 1.2 (0.8-1.1) H Activated Partial Thromboplast Time 24 SEC (24-38) D-Dimer (Jamila) 1.01 ug/mlFEU (0.00-0.50) H Sodium Level 136 mmol/L (136-145) Potassium Level 4.3 mmol/L (3.5-5.1) Chloride Level 103 mmol/L (98-107) Carbon Dioxide Level 23 mmol/L (21-32) Anion Gap 10 (6-14) Blood Urea Nitrogen 20 mg/dL (7-20) Creatinine 1.6 mg/dL (0.6-1.0) H Estimated GFR (Cockcroft-Gault) 31.3 BUN/Creatinine Ratio 13 (6-20) Glucose Level 210 mg/dL (70-99) H Lactic Acid Level 1.7 mmol/L (0.4-2.0) Calcium Level 8.6 mg/dL (8.5-10.1) Total Bilirubin 0.7 mg/dL (0.2-1.0) Aspartate Amino Transferase (AST) 33 U/L (15-37) Alanine Aminotransferase (ALT) 32 U/L (14-59) Alkaline Phosphatase 80 U/L (46-116) Creatine Kinase 125 U/L (26-192) Creatine Kinase MB (Mass) 1.3 ng/mL (0.0-3.6) Creatine Kinase MB Relative Index 1.0 % (0-4) Troponin I Quantitative < 0.017 ng/mL (0.000-0.055) < 0.017 ng/mL (0.000-0.055) UE-Jhe-J-Type Natriuretic Peptide 2933 pg/mL (0-449) H Total Protein 7.0 g/dL (6.4-8.2) Albumin 3.1 g/dL (3.4-5.0) L Albumin/Globulin Ratio 0.8 (1.0-1.7) L Urine Collection Type Unknown Urine Color Yellow Urine Clarity Clear Urine pH 5.5 (<5.0-8.0) Urine Specific [place] 1.010 (1.000-1.030) Urine Protein Negative mg/dL (NEG-TRACE) Urine Glucose (UA) 100 mg/dL (NEG) Urine Ketones (Stick) Negative mg/dL (NEG) Urine Blood Negative (NEG) Urine Nitrite Negative (NEG) Urine Bilirubin Negative (NEG) Urine Urobilinogen Dipstick 1.0 mg/dL (0.2 mg/dL) Urine Leukocyte Esterase Negative (NEG) Urine RBC 0 /HPF (0-2) Urine WBC Occ /HPF (0-4) Urine Squamous Epithelial Cells Few /LPF Urine Bacteria Moderate /HPF (0-FEW) Glucose (Fingerstick) 236 mg/dL (70-99) H Test 10/09/19 03:00 10/09/19 08:44 Triglycerides Level 62 mg/dL (0-150) Cholesterol Level 116 mg/dL (0-200) LDL Cholesterol, Calculated 56 mg/dL (0-100) VLDL Cholesterol, Calculated 12 mg/dL (0-40) Non-HDL Cholesterol Calculated 68 mg/dL (0-129) HDL Cholesterol 48 mg/dL (40-60) Cholesterol/HDL Ratio 2.4 Glucose (Fingerstick) 193 mg/dL (70-99) H Laboratory Tests 10/08/19 14:14 Laboratory Tests 10/08/19 14:14 ECHOCARDIOGRAM ECHOCARDIOGRAM <Conclusion> The left ventricular systolic function is normal. The Ejection Fraction is 55-60%. There is normal LV segmental wall motion. Transmitral Doppler flow pattern is Grade I-abnormal relaxation pattern. Mild to moderate aortic regurgitation. Mild mitral regurgitation. Trace tricuspid regurgitation. The PA pressure was estimated at 23 mmHg. There is no evidence of significant pericardial effusion. DATE: 05/09/17 1142 STRESS TEST STRESS TEST Conclusion 1. No EKG evidence of stressed induced ischemia. 2. Nuclear imaging is suggestive but not diagnostic of the lateral wall reversible ischemia. 3. Normal left ventricular systolic function with an ejection fraction of greater than 70%. 4. Moderate risk Lexiscan nuclear stress test. DATE: 11/13/17 1332 HEART CATH HEART CATH Findings. Hemodynamics. LV pressure of 200/44, aortic root pressure of 200/82. Coronaries. Left main. The left main had a distal 10% lesion. Left anterior descending. The LAD was a moderate size vessel. It had a mid 35- 40% lesion and a distal 30% lesion. It also had small diagonal branch vessel disease. Left circumflex. The left circumflex was a moderate sized vessel. It had a patent mid stent. It had a mid to distal subtotal lesion. Right coronary artery. The right coronary was a smaller size vessel. It was nondominant. It had diffuse mid to proximal disease of 70%. <Conclusion> Severe single-vessel coronary artery disease with a subtotal lesion in the left circumflex. Right coronary artery with a borderline lesion as outlined above. Moderate disease in the left anterior descending system. Successful drug-eluting stent placement to a subtotal lesion in the left circumflex with residual lesion of 0%. Elevated LV end-diastolic pressure. DATE: 05/08/17 1821 ASSESSMENT/PLAN ASSESSMENT/PLAN 1. Acute diastolic CHF. Covid negative, etiology unclear 2. HTN: labile episodes 3. DM2: BG not controlled, per PCP 4. HLP: on statin 5. CAD: multiple stents in the past. CP free 6. ROWDY likely on CKD3 Recommendations Lasix therapy TTE ASA, statin, on lisinopril/metoprolol and reported amlodipine as well. Monitor trend and hold norvasc, diurese and change to coreg at higher dose and increase ACEi prior to adding 3rd agent CHF could be from potential accelerated HTN, monitor BP trend. Pending clinical course and TTE result, will consider outpt ischemic w/u Dietitian consult CHRISSY TALBOT MD 10/09/19 1710: CARDIAC CONSULT ASSESSMENT/PLAN ASSESSMENT/PLAN Patient seen and evaluated Acute diastolic heart failure. Improved with diuresis. COVID negative. Echo pending. Labile hypertension. Continue present medications and monitor. Norvasc on hold as noted above. Hyperlipidemia. On a statin. Coronary artery disease. Previous stenting. No chest pain. Echo as above. ROWDY. Continuing to monitor lab. Thank you for allowing us to participate in the care of your patient. TYLER CARRASCO APRN Oct 09, 2019 09:04 CHRISSY TALBOT MD Oct 09, 2019 17:10
[2019-10-09 09:24] LABS: CALCIUM 8.8 mg/dL (8.5-10.1); CREATININE 1.4 mg/dL (0.6-1.0); GFR 36.5; MAGNESIUM 1.7 mg/dL (1.8-2.4); POTASSIUM 4.1 mmol/L (3.5-5.1)
[2019-10-09 11:00] VITALS: BP 197/87
[2019-10-09] MEDS ORDERED: FUROSEMIDE 40 MG/4 ML VIAL. IVP ONE ×2 (11:30→17:00)
[2019-10-09] MEDS ORDERED: METOPROLOL TART IMMED RELEASE 25 MG TABLET. PO SCH (12:00)
[2019-10-09] MEDS ORDERED: LISINOPRIL 10 MG TABLET PO SCH (12:00)
[2019-10-09] MEDS: ASPIRIN ENTERIC COATED 81 MG TABLET.DR. PO SCH (12:21)
--- NOTE | 2019-10-09 13:52 | PDOC ---
[facility] PROGRESS NOTE Date of Service DOS: DATE: 10/09/19 TIME: 13:49 Chief Complaint Chief Complaint Acute CHF exacerbation Chronic CHF, unknown EF CAD Diabetes mellitus type 2 Normocytic anemia Acute kidney injury due to vasomotor nephropathy Moderate malnutrition Admit to medicine Cardiology consult IV diuresis Strict I's and O's Salt restriction Daily weights R ISS and Accu-Cheks Avoid nephrotoxic agents Lovenox for DVT prophylaxis ADA diet Full code Discussed with RN and SW Disposition inpatient care pending cardiology evaluation Surrogate decision maker is self History of Present Illness History of Present Illness 79-year-old female with past medical history of CAD with stent placement, diabetes type 2, dyslipidemia, hypertension, possible CHF who presents to the ED with chest pressure and feeling like she is fluid overloaded. EMS did pick her up at the patient's doctor's office and was told that her O2 was saturating at the 80s and at that time she was wearing 2 to 4 L of oxygen. Patient was given aspirin during her transportation. Patient did also have her temperature taken and it was reported at 101. Her temperature in the ED was 99.1. Patient denies any recent COVID contacts. Denies fevers, shortness of breath, abdominal pain, diarrhea, loss of smell, dysuria, or bloody stools or syncope. 10/09/2019 No acute events overnight. Patient is requiring now 12 L of nasal cannula O2 to maintain O2 saturations greater than 92%. Patient has mild dyspnea. She says that she did respond to the Bumex but she feels like she needs more diuresis. Patient's chart, labs, images were reviewed and discussed with RN Vitals/I&O Vitals/I&O: Vital Signs Date Time Temp Pulse Resp B/P (MAP) Pulse Ox O2 Delivery O2 Flow Rate FiO2 10/09/19 12:22 77 185/77 10/09/19 11:00 98.5 18 97 Room Air 98.5 10/08/19 23:00 12.0 I & O0 10/08/19 10/08/19 10/09/19 15:00 23:00 07:00 Output Total 800 ml Balance -800 ml Physical Exam Physical Exam: GEN: No apparent distress. Alert and oriented HEENT: Normal cephalic, atraumatic, external auditory canals are patent NECK: Supple, no JVD, no thyromegaly was noted LUNGS: Bilateral crackles HEART: RRR, S1, S2 present. Peripheral pulses intact, no obvious murmurs noted ABDOMEN: Soft, nontender. Positive bowel sounds, no organomegaly, normal bowel sounds EXTREMITIES: Bilateral +1 pedal edema General: Alert, Oriented X3, Cooperative, mild distress Heart: Regular rate (SR) Lungs: Clear, Other Abdomen: Soft Extremities: No cyanosis, Other (trace LE edema) Skin: No breakdown Labs Labs: Laboratory Tests Test 10/08/19 14:14 10/08/19 15:23 10/08/19 18:17 10/08/19 20:00 White Blood Count 7.7 x10^3/uL (4.0-11.0) Red Blood Count 3.56 x10^6/uL (3.50-5.40) Hemoglobin 11.3 g/dL (12.0-15.5) Hematocrit 33.6 % (36.0-47.0) Mean Corpuscular Volume 94 fL (79-100) Mean Corpuscular Hemoglobin 32 pg (25-35) Mean Corpuscular Hemoglobin Concent 34 g/dL (31-37) Red Cell Distribution Width 13.5 % (11.5-14.5) Platelet Count 159 x10^3/uL (140-400) Neutrophils (%) (Auto) 81 % (31-73) Lymphocytes (%) (Auto) 9 % (24-48) Monocytes (%) (Auto) 10 % (0-9) Eosinophils (%) (Auto) 0 % (0-3) Basophils (%) (Auto) 0 % (0-3) Neutrophils # (Auto) 6.2 x10^3/uL (1.8-7.7) Lymphocytes # (Auto) 0.7 x10^3/uL (1.0-4.8) Monocytes # (Auto) 0.8 x10^3/uL (0.0-1.1) Eosinophils # (Auto) 0.0 x10^3/uL (0.0-0.7) Basophils # (Auto) 0.0 x10^3/uL (0.0-0.2) Prothrombin Time 14.5 SEC (11.7-14.0) Prothromb Time International Ratio 1.2 (0.8-1.1) Activated Partial Thromboplast Time 24 SEC (24-38) D-Dimer (Jamila) 1.01 ug/mlFEU (0.00-0.50) Sodium Level 136 mmol/L (136-145) Potassium Level 4.3 mmol/L (3.5-5.1) Chloride Level 103 mmol/L (98-107) Carbon Dioxide Level 23 mmol/L (21-32) Anion Gap 10 (6-14) Blood Urea Nitrogen 20 mg/dL (7-20) Creatinine 1.6 mg/dL (0.6-1.0) Estimated GFR (Cockcroft-Gault) 31.3 BUN/Creatinine Ratio 13 (6-20) Glucose Level 210 mg/dL (70-99) Lactic Acid Level 1.7 mmol/L (0.4-2.0) Calcium Level 8.6 mg/dL (8.5-10.1) Total Bilirubin 0.7 mg/dL (0.2-1.0) Aspartate Amino Transf (AST/SGOT) 33 U/L (15-37) Alanine Aminotransferase (ALT/SGPT) 32 U/L (14-59) Alkaline Phosphatase 80 U/L (46-116) Creatine Kinase 125 U/L (26-192) Creatine Kinase MB (Mass) 1.3 ng/mL (0.0-3.6) Creatine Kinase MB Relative Index 1.0 % (0-4) Troponin I Quantitative < 0.017 ng/mL (0.000-0.055) < 0.017 ng/mL (0.000-0.055) MC-Eee-R-Type Natriuretic Peptide 2933 pg/mL (0-449) Total Protein 7.0 g/dL (6.4-8.2) Albumin 3.1 g/dL (3.4-5.0) Albumin/Globulin Ratio 0.8 (1.0-1.7) Coronavirus (PCR) Not detected (Not Detected) Urine Collection Type Unknown Urine Color Yellow Urine Clarity Clear Urine pH 5.5 (<5.0-8.0) Urine Specific [place] 1.010 (1.000-1.030) Urine Protein Negative mg/dL (NEG-TRACE) Urine Glucose (UA) 100 mg/dL (NEG) Urine Ketones (Stick) Negative mg/dL (NEG) Urine Blood Negative (NEG) Urine Nitrite Negative (NEG) Urine Bilirubin Negative (NEG) Urine Urobilinogen Dipstick 1.0 mg/dL (0.2 mg/dL) Urine Leukocyte Esterase Negative (NEG) Urine RBC 0 /HPF (0-2) Urine WBC Occ /HPF (0-4) Urine Squamous Epithelial Cells Few /LPF Urine Bacteria Moderate /HPF (0-FEW) Test 10/08/19 23:42 10/09/19 03:00 10/09/19 08:44 10/09/19 11:58 Glucose (Fingerstick) 236 mg/dL (70-99) 193 mg/dL (70-99) 211 mg/dL (70-99) Sodium Level 139 mmol/L (136-145) Potassium Level 4.1 mmol/L (3.5-5.1) Chloride Level 105 mmol/L (98-107) Carbon Dioxide Level 25 mmol/L (21-32) Anion Gap 9 (6-14) Blood Urea Nitrogen 18 mg/dL (7-20) Creatinine 1.4 mg/dL (0.6-1.0) Estimated GFR (Cockcroft-Gault) 36.5 Glucose Level 181 mg/dL (70-99) Calcium Level 8.8 mg/dL (8.5-10.1) Magnesium Level 1.7 mg/dL (1.8-2.4) Triglycerides Level 62 mg/dL (0-150) Cholesterol Level 116 mg/dL (0-200) LDL Cholesterol, Calculated 56 mg/dL (0-100) VLDL Cholesterol, Calculated 12 mg/dL (0-40) Non-HDL Cholesterol Calculated 68 mg/dL (0-129) HDL Cholesterol 48 mg/dL (40-60) Cholesterol/HDL Ratio 2.4 Thyroid Stimulating Hormone (TSH) 0.345 uIU/mL (0.358-3.74) Assessment and Plan Assessmemt and Plan Problems Medical Problems: (1) Acute exacerbation of CHF (congestive heart failure) Status: Acute (2) Elevated d-dimer Status: Acute (3) Hypoxia Status: Acute (4) Suspected 2019 novel coronavirus infection Status: Acute Comment Review of Relevant I have reviewed the following items trupti (where applicable) has been applied. Medications: Current Medications Medications (Trade) Dose Ordered Sig/Scotty Route PRN Reason Start Time Stop Time Status Last Admin Dose Admin Aspirin (Martinez Aspirin) 325 mg 1X ONCE PO 10/08/19 16:00 10/08/19 16:01 DC 10/08/19 16:30 Bumetanide (Bumex) 1 mg 1X ONCE IV 10/08/19 16:00 10/08/19 16:01 DC 10/08/19 16:31 Nitroglycerin (Nitro-Bid Oint) 0.5 inch 1X ONCE TP 10/08/19 16:00 10/08/19 16:01 DC 10/08/19 16:00 Acetaminophen (Tylenol) 500 mg 1X ONCE PO 10/08/19 16:00 10/08/19 16:01 DC 10/08/19 16:31 Enoxaparin Sodium (Lovenox 40mg Syringe) 40 mg Q24H SQ 10/08/19 21:00 10/08/19 23:34 Thiamine HCl 100 mg/Dextrose 51 ml @ 102 mls/hr DAILY IV 10/08/19 21:00 10/09/19 09:00 Furosemide (Lasix) 40 mg 1X ONCE IVP 10/09/19 11:30 10/09/19 11:31 DC 10/09/19 11:02 Aspirin (Ecotrin) 81 mg DAILY PO 10/09/19 12:00 10/09/19 12:21 Lisinopril (Prinivil) 10 mg DAILY PO 10/09/19 12:00 10/09/19 13:45 DC 10/09/19 12:21 Metoprolol Tartrate (Lopressor) 12.5 mg BID PO 10/09/19 12:00 10/09/19 13:45 DC 10/09/19 12:22 Justifications for Admission Other Justification SHANNAN OVIEDO MD Oct 09, 2019 13:52
[2019-10-09] MEDS ORDERED: POTASSIUM CHLORIDE 20 MEQ TABLET.ER. PO ONE (14:30)
[2019-10-09] MEDS: MAGNESIUM SULFATE 2GM 50 ML IV ONE ×2 (14:30→15:57)
[2019-10-09] MEDS ORDERED: LISINOPRIL 10 MG TABLET PO ONE (14:30)
[2019-10-09 15:00] VITALS: BP 140/103
[2019-10-09] MEDS: CARVEDILOL 6.25 MG TABLET. PO SCH (15:56)
--- NOTE | 2019-10-09 17:27 | NUR ---
SW following. Spoke with RN and reviewed chart. Spoke with pt who stated she lives with spouse and stated no concerns about returning home at discharge. Pt declined the need for HH. Pt currently on 3l and does not have home 02. Pt was on 12l prior and is being titrated. Pt on IV Dextrose. Pt added to the potential weekend discharge list with possible need for a 6 min walk and 02 setup. SW following as needed.
[2019-10-09] MEDS: MAGNESIUM OXIDE 400 MG TABLET PO SCH (18:26)
[2019-10-09 19:51] VITALS: BP 160/70
[2019-10-09] MEDS ORDERED: TRAZ-118 PO (20:19)
[2019-10-09] MEDS: ATORVASTATIN CALCIUM 20 MG TABLET PO SCH (20:44)
[2019-10-09] MEDS: ENOXAPARIN 40 MG/0.4 ML SYRINGE. SQ SCH (20:45)
[2019-10-09] MEDS: traZODone 50 MG TABLET. PO SCH (20:45)
[2019-10-09] MEDS ORDERED: MAGNESIUM OXIDE 400 MG TABLET PO SCH (21:00)
[2019-10-09 23:21] VITALS: BP 139/83
[2019-10-10 03:27] VITALS: BP 143/65
[2019-10-10 05:53] LABS: CALCIUM 8.8 mg/dL (8.5-10.1); CREATININE 1.5 mg/dL (0.6-1.0); GFR 33.7; MAGNESIUM 1.8 mg/dL (1.8-2.4); POTASSIUM 3.6 mmol/L (3.5-5.1)
[2019-10-10 07:28] VITALS: BP 150/71
[2019-10-10] MEDS: INSULIN LISPRO 300 UNITS/3 ML VIAL. SQ SCH ×3 (08:00→17:00)
[2019-10-10] MEDS: MAGNESIUM OXIDE 400 MG TABLET PO SCH ×2 (08:25→21:07)
[2019-10-10] MEDS: ASPIRIN ENTERIC COATED 81 MG TABLET.DR. PO SCH (08:25)
[2019-10-10] MEDS: CARVEDILOL 6.25 MG TABLET. PO SCH ×2 (08:26→18:16)
[2019-10-10] MEDS: LISINOPRIL 20 MG TABLET PO SCH (08:26)
[2019-10-10] MEDS: THIAMINE INJ 100 MG in IV DEXTROSE 5% 50 ML IV SCH (11:12)
[2019-10-10 11:47] VITALS: BP 146/71
[2019-10-10] MEDS: FUROSEMIDE 40 MG/4 ML VIAL. IVP SCH (12:30)
[2019-10-10] MEDS ORDERED: POTASSIUM CHLORIDE 20 MEQ TABLET.ER. PO ONE (12:30)
--- NOTE | 2019-10-10 14:16 | PDOC ---
[facility] [facility] PROGRESS NOTE Date of Service DOS: DATE: 10/10/19 TIME: 14:14 Chief Complaint Chief Complaint Acute CHF exacerbation Chronic CHF, unknown EF CAD Diabetes mellitus type 2 Normocytic anemia Acute kidney injury due to vasomotor nephropathy Moderate malnutrition Admit to medicine Cardiology consult We will continue IV diuresis again today Strict I's and O's Salt restriction Daily weights R ISS and Accu-Cheks Avoid nephrotoxic agents Lovenox for DVT prophylaxis ADA diet Full code Discussed with RN and KERON Disposition inpatient care pending cardiology evaluation Surrogate decision maker is self History of Present Illness History of Present Illness 79-year-old female with past medical history of CAD with stent placement, diabetes type 2, dyslipidemia, hypertension, possible CHF who presents to the ED with chest pressure and feeling like she is fluid overloaded. EMS did pick her up at the patient's doctor's office and was told that her O2 was saturating at the 80s and at that time she was wearing 2 to 4 L of oxygen. Patient was given aspirin during her transportation. Patient did also have her temperature taken and it was reported at 101. Her temperature in the ED was 99.1. Patient denies any recent COVID contacts. Denies fevers, shortness of breath, abdominal pain, diarrhea, loss of smell, dysuria, or bloody stools or syncope. 10/09/2019 No acute events overnight. Patient is requiring now 12 L of nasal cannula O2 to maintain O2 saturations greater than 92%. Patient has mild dyspnea. She says that she did respond to the Bumex but she feels like she needs more diuresis. Patient's chart, labs, images were reviewed and discussed with RN 10/10/2019 No acute events overnight. Patient put out 3 L of urine output since Lasix yesterday. Creatinine is stable at 1.4. Patient has improved respiratory status and is on 2 to 3 L of nasal cannula O2 saturating greater than 92%. Patient's chart, labs, images were reviewed and discussed with RN Vitals/I&O Vitals/I&O: Vital Signs Date Time Temp Pulse Resp B/P (MAP) Pulse Ox O2 Delivery O2 Flow Rate FiO2 10/10/19 11:47 97.4 72 20 146/71 (96) 94 Nasal Cannula 3.0 97.4 I & O 10/09/19 10/09/19 10/10/19 15:00 23:00 07:00 Intake Total 220 ml Output Total 1650 ml 600 ml 1800 ml Balance -1430 ml -600 ml -1800 ml Physical Exam Physical Exam: GEN: No apparent distress. Alert and oriented HEENT: Normal cephalic, atraumatic, external auditory canals are patent NECK: Supple, no JVD, no thyromegaly was noted LUNGS: Bilateral crackles HEART: RRR, S1, S2 present. Peripheral pulses intact, no obvious murmurs noted ABDOMEN: Soft, nontender. Positive bowel sounds, no organomegaly, normal bowel sounds EXTREMITIES: Bilateral +1 pedal edema General: Alert, Oriented X3, Cooperative, mild distress Heart: Regular rate (SR) Lungs: Clear, Other Abdomen: Soft Extremities: No cyanosis, Other (trace LE edema) Skin: No breakdown Labs Labs: Laboratory Tests Test 10/09/19 17:02 10/09/19 20:43 10/10/19 04:45 10/10/19 08:01 Glucose (Fingerstick) 166 mg/dL (70-99) 149 mg/dL (70-99) 141 mg/dL (70-99) Sodium Level 139 mmol/L (136-145) Potassium Level 3.6 mmol/L (3.5-5.1) Chloride Level 101 mmol/L (98-107) Carbon Dioxide Level 30 mmol/L (21-32) Anion Gap 8 (6-14) Blood Urea Nitrogen 17 mg/dL (7-20) Creatinine 1.5 mg/dL (0.6-1.0) Estimated GFR (Cockcroft-Gault) 33.7 Glucose Level 127 mg/dL (70-99) Calcium Level 8.8 mg/dL (8.5-10.1) Magnesium Level 1.8 mg/dL (1.8-2.4) Test 10/10/19 11:27 Glucose (Fingerstick) 158 mg/dL (70-99) Assessment and Plan Assessmemt and Plan Problems Medical Problems: (1) Acute exacerbation of CHF (congestive heart failure) Status: Acute (2) Elevated d-dimer Status: Acute (3) Hypoxia Status: Acute (4) Suspected 2019 novel coronavirus infection Status: Acute Comment Review of Relevant I have reviewed the following items trupti (where applicable) has been applied. Medications: Current Medications Medications (Trade) Dose Ordered Sig/Scotty Route PRN Reason Start Time Stop Time Status Last Admin Dose Admin Atorvastatin Calcium (Lipitor) 20 mg HS PO 10/09/19 21:00 10/09/19 20:44 Furosemide (Lasix) 40 mg 1X ONCE IVP 10/09/19 17:00 10/09/19 17:01 DC 10/09/19 16:35 Potassium Chloride (Klor-Con) 20 meq 1X ONCE PO 10/09/19 14:30 10/09/19 14:31 DC 10/09/19 15:58 Lisinopril (Prinivil) 20 mg DAILY PO 10/10/19 09:00 10/10/19 08:26 Carvedilol (Coreg) 6.25 mg BIDWMEALS PO 10/09/19 17:00 10/10/19 08:26 Lisinopril (Prinivil) 10 mg 1X ONCE PO 10/09/19 14:30 10/09/19 14:31 DC 10/09/19 15:56 Magnesium Oxide (Magnesium Oxide) 400 mg BID PO 10/09/19 18:00 10/10/19 08:25 Trazodone HCl (Desyrel) 50 mg QHS PO 10/09/19 21:00 10/09/19 20:45 Potassium Chloride (Klor-Con) 20 meq 1X ONCE PO 10/10/19 12:30 10/10/19 12:31 DC 10/10/19 13:39 Justifications for Admission Other Justification SHANNAN OVIEDO MD Oct 10, 2019 14:16
--- NOTE | 2019-10-10 14:18 | PDOC ---
PROGRESS NOTES Date of Service DATE: 10/10/19 TIME: 14:15 Subjective Subjective Patient seen and evaluated Objective Objective Vital Signs Date Time Temp Pulse Resp B/P (MAP) Pulse Ox O2 Delivery O2 Flow Rate FiO2 10/10/19 11:47 97.4 72 20 146/71 (96) 94 Nasal Cannula 3.0 97.4 Intake and Output 10/10/19 07:00 Intake Total 220 ml Output Total 4050 ml Balance -3830 ml Intake Oral 220 ml Output Urine Total 4050 ml # Bowel Movements 1 Physical Exam Abdomen: Normal bowel sounds Heart: Regular rate General: mild distress Lungs: Other (Mildly decreased breath sounds) Assessment Assessment Problems Medical Problems: (1) Acute exacerbation of CHF (congestive heart failure) Status: Acute (2) Elevated d-dimer Status: Acute (3) Hypoxia Status: Acute (4) Suspected 2019 novel coronavirus infection Status: Acute 1. Acute diastolic CHF. Covid negative, improved. Continuing medications with monitoring of lab. VQ scan is low probability. Echocardiogram pending 2. HTN: labile episodes. Overall improved. 3. DM2: per PCP 4. HLP: on statin 5. CAD: multiple stents in the past. CP free 6. ROWDY likely on CKD. Creatinine of 1.5. Continue to monitor. Comment Review of Relevant I have reviewed the following items trupti (where applicable) has been applied. Labs Laboratory Tests Test 10/08/19 15:23 10/08/19 18:17 10/08/19 20:00 10/08/19 23:42 Coronavirus (PCR) Not detected (Not Detected) Urine Collection Type Unknown Urine Color Yellow Urine Clarity Clear Urine pH 5.5 (<5.0-8.0) Urine Specific [place] 1.010 (1.000-1.030) Urine Protein Negative mg/dL (NEG-TRACE) Urine Glucose (UA) 100 mg/dL (NEG) Urine Ketones (Stick) Negative mg/dL (NEG) Urine Blood Negative (NEG) Urine Nitrite Negative (NEG) Urine Bilirubin Negative (NEG) Urine Urobilinogen Dipstick 1.0 mg/dL (0.2 mg/dL) Urine Leukocyte Esterase Negative (NEG) Urine RBC 0 /HPF (0-2) Urine WBC Occ /HPF (0-4) Urine Squamous Epithelial Cells Few /LPF Urine Bacteria Moderate /HPF (0-FEW) Troponin I Quantitative < 0.017 ng/mL (0.000-0.055) Glucose (Fingerstick) 236 mg/dL (70-99) Test 10/09/19 03:00 10/09/19 08:44 10/09/19 11:58 10/09/19 17:02 Sodium Level 139 mmol/L (136-145) Potassium Level 4.1 mmol/L (3.5-5.1) Chloride Level 105 mmol/L (98-107) Carbon Dioxide Level 25 mmol/L (21-32) Anion Gap 9 (6-14) Blood Urea Nitrogen 18 mg/dL (7-20) Creatinine 1.4 mg/dL (0.6-1.0) Estimated GFR (Cockcroft-Gault) 36.5 Glucose Level 181 mg/dL (70-99) Calcium Level 8.8 mg/dL (8.5-10.1) Magnesium Level 1.7 mg/dL (1.8-2.4) Triglycerides Level 62 mg/dL (0-150) Cholesterol Level 116 mg/dL (0-200) LDL Cholesterol, Calculated 56 mg/dL (0-100) VLDL Cholesterol, Calculated 12 mg/dL (0-40) Non-HDL Cholesterol Calculated 68 mg/dL (0-129) HDL Cholesterol 48 mg/dL (40-60) Cholesterol/HDL Ratio 2.4 Thyroid Stimulating Hormone (TSH) 0.345 uIU/mL (0.358-3.74) Glucose (Fingerstick) 193 mg/dL (70-99) 211 mg/dL (70-99) 166 mg/dL (70-99) Test 10/09/19 20:43 10/10/19 04:45 10/10/19 08:01 10/10/19 11:27 Glucose (Fingerstick) 149 mg/dL (70-99) 141 mg/dL (70-99) 158 mg/dL (70-99) Sodium Level 139 mmol/L (136-145) Potassium Level 3.6 mmol/L (3.5-5.1) Chloride Level 101 mmol/L (98-107) Carbon Dioxide Level 30 mmol/L (21-32) Anion Gap 8 (6-14) Blood Urea Nitrogen 17 mg/dL (7-20) Creatinine 1.5 mg/dL (0.6-1.0) Estimated GFR (Cockcroft-Gault) 33.7 Glucose Level 127 mg/dL (70-99) Calcium Level 8.8 mg/dL (8.5-10.1) Magnesium Level 1.8 mg/dL (1.8-2.4) Laboratory Tests Test 10/09/19 17:02 10/09/19 20:43 10/10/19 04:45 10/10/19 08:01 Glucose (Fingerstick) 166 mg/dL (70-99) 149 mg/dL (70-99) 141 mg/dL (70-99) Sodium Level 139 mmol/L (136-145) Potassium Level 3.6 mmol/L (3.5-5.1) Chloride Level 101 mmol/L (98-107) Carbon Dioxide Level 30 mmol/L (21-32) Anion Gap 8 (6-14) Blood Urea Nitrogen 17 mg/dL (7-20) Creatinine 1.5 mg/dL (0.6-1.0) Estimated GFR (Cockcroft-Gault) 33.7 Glucose Level 127 mg/dL (70-99) Calcium Level 8.8 mg/dL (8.5-10.1) Magnesium Level 1.8 mg/dL (1.8-2.4) Test 10/10/19 11:27 Glucose (Fingerstick) 158 mg/dL (70-99) Microbiology 10/08/19 Urine Culture - Final, Complete 10/08/19 Blood Culture - Preliminary, Resulted NO GROWTH AFTER 1 DAY Medications Current Medications Aspirin (Martinez Aspirin) 325 mg 1X ONCE PO Last administered on 10/08/19at 16:30; Start 10/08/19 at 16:00; Stop 10/08/19 at 16:01; Status DC Bumetanide (Bumex) 1 mg 1X ONCE IV Last administered on 10/08/19at 16:31; Start 10/08/19 at 16:00; Stop 10/08/19 at 16:01; Status DC Nitroglycerin (Nitro-Bid Oint) 0.5 inch 1X ONCE TP Last administered on 10/08/19at 16:00; Start 10/08/19 at 16:00; Stop 10/08/19 at 16:01; Status DC Acetaminophen (Tylenol) 500 mg 1X ONCE PO Last administered on 10/08/19at 16:31; Start 10/08/19 at 16:00; Stop 10/08/19 at 16:01; Status DC Ondansetron HCl (Zofran) 4 mg PRN Q8HRS PRN IV NAUSEA/VOMITING; Start 10/08/19 at 16:00; Stop 10/09/19 at 15:59; Status DC Acetaminophen (Tylenol) 650 mg PRN Q4HRS PRN PO FEVER > 100.3'F; Start 10/08/19 at 16:00; Stop 10/09/19 at 15:59; Status DC Insulin Human Lispro (HumaLOG) 0-5 UNITS TIDWMEALS SQ Last administered on 10/10/19at 13:30; Start 10/08/19 at 17:00 Dextrose (Dextrose 50%-Water Syringe) 12.5 gm PRN Q15MIN PRN IV SEE COMMENTS; Start 10/08/19 at 16:00 Enoxaparin Sodium (Lovenox 40mg Syringe) 40 mg Q24H SQ Last administered on 10/09/19at 20:45; Start 10/08/19 at 21:00 Thiamine HCl 100 mg/Dextrose 51 ml @ 102 mls/hr DAILY IV Last administered on 10/10/19at 11:12; Start 10/08/19 at 21:00 Furosemide (Lasix) 40 mg 1X ONCE IVP Last administered on 10/09/19at 11:02; Start 10/09/19 at 11:30; Stop 10/09/19 at 11:31; Status DC Aspirin (Ecotrin) 81 mg DAILY PO Last administered on 10/10/19at 08:25; Start 10/09/19 at 12:00 Atorvastatin Calcium (Lipitor) 20 mg HS PO Last administered on 10/09/19at 20:44; Start 10/09/19 at 21:00 Lisinopril (Prinivil) 10 mg DAILY PO Last administered on 10/09/19at 12:21; Start 10/09/19 at 12:00; Stop 10/09/19 at 13:45; Status DC Metoprolol Tartrate (Lopressor) 12.5 mg BID PO Last administered on 10/09/19at 12:22; Start 10/09/19 at 12:00; Stop 10/09/19 at 13:45; Status DC Furosemide (Lasix) 40 mg 1X ONCE IVP Last administered on 10/09/19at 16:35; Start 10/09/19 at 17:00; Stop 10/09/19 at 17:01; Status DC Magnesium Sulfate 50 ml @ 25 mls/hr 1X ONCE IV ; Start 10/09/19 at 14:30; Stop 10/09/19 at 17:29; Status DC Potassium Chloride (Klor-Con) 20 meq 1X ONCE PO Last administered on 10/09/19at 15:58; Start 10/09/19 at 14:30; Stop 10/09/19 at 14:31; Status DC Lisinopril (Prinivil) 20 mg DAILY PO Last administered on 10/10/19at 08:26; Start 10/10/19 at 09:00 Carvedilol (Coreg) 6.25 mg BIDWMEALS PO Last administered on 10/10/19at 08:26; Start 10/09/19 at 17:00 Lisinopril (Prinivil) 10 mg 1X ONCE PO Last administered on 10/09/19at 15:56; Start 10/09/19 at 14:30; Stop 10/09/19 at 14:31; Status DC Magnesium Oxide (Magnesium Oxide) 400 mg BID PO ; Start 10/09/19 at 21:00; Stop 10/09/19 at 17:46; Status DC Magnesium Oxide (Magnesium Oxide) 400 mg BID PO Last administered on 10/10/19at 08:25; Start 10/09/19 at 18:00 Trazodone HCl (Desyrel) 50 mg QHS PO Last administered on 10/09/19at 20:45; Start 10/09/19 at 21:00 Furosemide (Lasix) 40 mg DAILY IVP ; Start 10/10/19 at 12:30 Potassium Chloride (Klor-Con) 20 meq 1X ONCE PO Last administered on 10/10/19at 13:39; Start 10/10/19 at 12:30; Stop 10/10/19 at 12:31; Status DC Active Scripts Active Reported Trazodone Hcl 50 Mg Tablet 50 Mg PO HS Atorvastatin Calcium 20 Mg Tablet 20 Mg PO HS Brilinta (Ticagrelor) 90 Mg Tablet 90 Mg PO BID Lisinopril 10 Mg Tablet 10 Mg PO DAILY Aspirin Ec (Aspirin) 81 Mg Tablet.dr 81 Mg PO DAILY Metoprolol Tartrate 25 Mg Tablet 12.5 Mg PO BID Vitals/I & O Vital Sign - Last 24 Hours 10/09/19 10/09/19 10/09/19 10/09/19 15:00 15:56 15:56 19:51 Temp 98.7 98.8 98.7 98.8 Pulse 72 77 77 73 Resp 18 16 B/P (MAP) 140/103 (115) 185/77 185/77 160/70 (100) Pulse Ox 97 90 O2 Delivery Room Air Nasal Cannula O2 Flow Rate 3.0 10/09/19 10/09/19 10/10/19 10/10/19 20:00 23:21 03:27 07:28 Temp 98.2 98.1 98.1 98.2 98.1 98.1 Pulse 71 71 82 Resp 16 16 18 B/P (MAP) 139/83 (101) 143/65 (91) 150/71 (97) Pulse Ox 92 90 92 O2 Delivery Nasal Cannula Nasal Cannula Nasal Cannula Nasal Cannula O2 Flow Rate 3.0 3.0 3.0 3.0 10/10/19 10/10/19 10/10/19 08:26 08:26 11:47 Temp 97.4 97.4 Pulse 75 75 72 Resp 20 B/P (MAP) 151/70 151/70 146/71 (96) Pulse Ox 94 O2 Delivery Nasal Cannula O2 Flow Rate 3.0 Intake and Output 10/09/19 10/09/19 10/10/19 15:00 23:00 07:00 Intake Total 220 ml Output Total 1650 ml 600 ml 1800 ml Balance -1430 ml -600 ml -1800 ml Justifications for Admission Other Justification CHRISSY TALBOT MD Oct 10, 2019 14:18
[2019-10-10 15:19] VITALS: BP 162/70
[2019-10-10] MEDS ORDERED: FUROSEMIDE 80 MG TABLET. PO ONE (17:45)
[2019-10-10 19:00] VITALS: BP 147/58
[2019-10-10] MEDS: ATORVASTATIN CALCIUM 20 MG TABLET PO SCH (21:07)
[2019-10-10] MEDS: traZODone 50 MG TABLET. PO SCH (21:07)
[2019-10-10] MEDS: ENOXAPARIN 40 MG/0.4 ML SYRINGE. SQ SCH (21:07)
[2019-10-10 23:00] VITALS: BP 148/65
[2019-10-11 03:00] VITALS: BP 132/55
[2019-10-11 07:13] VITALS: BP 158/61
[2019-10-11] MEDS: CARVEDILOL 6.25 MG TABLET. PO SCH ×2 (10:18→17:29)
[2019-10-11] MEDS: ASPIRIN ENTERIC COATED 81 MG TABLET.DR. PO SCH (10:18)
[2019-10-11] MEDS: FUROSEMIDE 40 MG/4 ML VIAL. IVP SCH (10:18)
[2019-10-11] MEDS: THIAMINE INJ 100 MG in IV DEXTROSE 5% 50 ML IV SCH (10:19)
[2019-10-11] MEDS: LISINOPRIL 20 MG TABLET PO SCH (10:19)
[2019-10-11] MEDS: MAGNESIUM OXIDE 400 MG TABLET PO SCH ×2 (10:19→21:00)
[2019-10-11] MEDS: INSULIN LISPRO 300 UNITS/3 ML VIAL. SQ SCH ×3 (10:23→17:00)
[2019-10-11 11:10] VITALS: BP 133/66
--- NOTE | 2019-10-11 14:23 | PDOC ---
PROGRESS NOTES Date of Service DATE: 10/11/19 TIME: 14:21 Subjective Subjective Patient seen and examined Objective Objective Vital Signs Date Time Temp Pulse Resp B/P (MAP) Pulse Ox O2 Delivery O2 Flow Rate FiO2 10/11/19 11:10 97.8 97 20 133/66 (88) 97 Room Air 97.8 10/11/19 07:13 3.0 Intake and Output 10/11/19 07:00 Intake Total 1570 ml Output Total 1450 ml Balance 120 ml Intake Oral 1570 ml Output Urine Total 1450 ml # Voids 1 Physical Exam Abdomen: Normal bowel sounds Heart: Regular rate General: No acute distress Lungs: Other (Slightly decreased breath sounds) Assessment Assessment Problems Medical Problems: (1) Acute exacerbation of CHF (congestive heart failure) Status: Acute (2) Elevated d-dimer Status: Acute (3) Hypoxia Status: Acute (4) Suspected 2019 novel coronavirus infection Status: Acute 1. Acute diastolic CHF. Improved. VQ scan is low probability. COVID negative. Continue medical treatment. Echocardiogram today. 2. HTN: labile episodes. Overall improved. 3. DM2: per PCP 4. HLP: on statin 5. CAD: multiple stents in the past. CP free 6. ROWDY likely on CKD. Continue to monitor. Comment Review of Relevant I have reviewed the following items trupti (where applicable) has been applied. Labs Laboratory Tests Test 10/09/19 17:02 10/09/19 20:43 10/10/19 04:45 10/10/19 08:01 Glucose (Fingerstick) 166 mg/dL (70-99) 149 mg/dL (70-99) 141 mg/dL (70-99) Sodium Level 139 mmol/L (136-145) Potassium Level 3.6 mmol/L (3.5-5.1) Chloride Level 101 mmol/L (98-107) Carbon Dioxide Level 30 mmol/L (21-32) Anion Gap 8 (6-14) Blood Urea Nitrogen 17 mg/dL (7-20) Creatinine 1.5 mg/dL (0.6-1.0) Estimated GFR (Cockcroft-Gault) 33.7 Glucose Level 127 mg/dL (70-99) Calcium Level 8.8 mg/dL (8.5-10.1) Magnesium Level 1.8 mg/dL (1.8-2.4) Test 10/10/19 11:27 10/10/19 16:26 10/10/19 20:40 10/11/19 07:44 Glucose (Fingerstick) 158 mg/dL (70-99) 134 mg/dL (70-99) 163 mg/dL (70-99) 178 mg/dL (70-99) Test 10/11/19 11:05 Glucose (Fingerstick) 266 mg/dL (70-99) Laboratory Tests Test 10/10/19 16:26 10/10/19 20:40 10/11/19 07:44 10/11/19 11:05 Glucose (Fingerstick) 134 mg/dL (70-99) 163 mg/dL (70-99) 178 mg/dL (70-99) 266 mg/dL (70-99) Microbiology 10/08/19 Urine Culture - Final, Complete 10/08/19 Blood Culture - Preliminary, Resulted NO GROWTH AFTER 2 DAYS Medications Current Medications Aspirin (Teqcycle Aspirin) 325 mg 1X ONCE PO Last administered on 10/08/19at 16:30; Start 10/08/19 at 16:00; Stop 10/08/19 at 16:01; Status DC Bumetanide (Bumex) 1 mg 1X ONCE IV Last administered on 10/08/19at 16:31; Start 10/08/19 at 16:00; Stop 10/08/19 at 16:01; Status DC Nitroglycerin (Nitro-Bid Oint) 0.5 inch 1X ONCE TP Last administered on 0at 16:00; Start 10/08/19 at 16:00; Stop 10/08/19 at 16:01; Status DC Acetaminophen (Tylenol) 500 mg 1X ONCE PO Last administered on 10/08/19at 16:31; Start 10/08/19 at 16:00; Stop 10/08/19 at 16:01; Status DC Ondansetron HCl (Zofran) 4 mg PRN Q8HRS PRN IV NAUSEA/VOMITING; Start 10/08/19 at 16:00; Stop 10/09/19 at 15:59; Status DC Acetaminophen (Tylenol) 650 mg PRN Q4HRS PRN PO FEVER > 100.3'F; Start 10/08/19 at 16:00; Stop 8/28/20 at 15:59; Status DC Insulin Human Lispro (HumaLOG) 0-5 UNITS TIDWMEALS SQ Last administered on 10/11/19at 12:14; Start 10/08/19 at 17:00 Dextrose (Dextrose 50%-Water Syringe) 12.5 gm PRN Q15MIN PRN IV SEE COMMENTS; Start 10/08/19 at 16:00 Enoxaparin Sodium (Lovenox 40mg Syringe) 40 mg Q24H SQ Last administered on 10/10/19at 21:07; Start 10/08/19 at 21:00 Thiamine HCl 100 mg/Dextrose 51 ml @ 102 mls/hr DAILY IV Last administered on 10/11/19at 10:19; Start 10/08/19 at 21:00 Furosemide (Lasix) 40 mg 1X ONCE IVP Last administered on 10/09/19at 11:02; Start 10/09/19 at 11:30; Stop 10/09/19 at 11:31; Status DC Aspirin (Ecotrin) 81 mg DAILY PO Last administered on 10/11/19at 10:18; Start 10/09/19 at 12:00 Atorvastatin Calcium (Lipitor) 20 mg HS PO Last administered on 10/10/19at 21:07; Start 10/09/19 at 21:00 Lisinopril (Prinivil) 10 mg DAILY PO Last administered on 10/09/19at 12:21; Start 10/09/19 at 12:00; Stop 10/09/19 at 13:45; Status DC Metoprolol Tartrate (Lopressor) 12.5 mg BID PO Last administered on 10/09/19at 12:22; Start 10/09/19 at 12:00; Stop 10/09/19 at 13:45; Status DC Furosemide (Lasix) 40 mg 1X ONCE IVP Last administered on 10/09/19at 16:35; Start 10/09/19 at 17:00; Stop 10/09/19 at 17:01; Status DC Magnesium Sulfate 50 ml @ 25 mls/hr 1X ONCE IV ; Start 10/09/19 at 14:30; Stop 10/09/19 at 17:29; Status DC Potassium Chloride (Klor-Con) 20 meq 1X ONCE PO Last administered on 10/09/19at 15:58; Start 10/09/19 at 14:30; Stop 10/09/19 at 14:31; Status DC Lisinopril (Prinivil) 20 mg DAILY PO Last administered on 10/11/19at 10:19; Start 10/10/19 at 09:00 Carvedilol (Coreg) 6.25 mg BIDWMEALS PO Last administered on 10/11/19at 10:18; Start 10/09/19 at 17:00 Lisinopril (Prinivil) 10 mg 1X ONCE PO Last administered on 10/09/19at 15:56; Start 10/09/19 at 14:30; Stop 10/09/19 at 14:31; Status DC Magnesium Oxide (Magnesium Oxide) 400 mg BID PO ; Start 10/09/19 at 21:00; Stop 10/09/19 at 17:46; Status DC Magnesium Oxide (Magnesium Oxide) 400 mg BID PO Last administered on 10/11/19at 10:19; Start 10/09/19 at 18:00 Trazodone HCl (Desyrel) 50 mg QHS PO Last administered on 10/10/19at 21:07; Start 10/09/19 at 21:00 Furosemide (Lasix) 40 mg DAILY IVP Last administered on 10/11/19at 10:18; Start 10/10/19 at 12:30 Potassium Chloride (Klor-Con) 20 meq 1X ONCE PO Last administered on 10/10/19at 13:39; Start 10/10/19 at 12:30; Stop 10/10/19 at 12:31; Status DC Furosemide (Lasix) 80 mg 1X ONCE PO Last administered on 10/10/19at 18:16; Start 10/10/19 at 17:45; Stop 10/10/19 at 17:46; Status DC Active Scripts Active Reported Trazodone Hcl 50 Mg Tablet 50 Mg PO HS Atorvastatin Calcium 20 Mg Tablet 20 Mg PO HS Brilinta (Ticagrelor) 90 Mg Tablet 90 Mg PO BID Lisinopril 10 Mg Tablet 10 Mg PO DAILY Aspirin Ec (Aspirin) 81 Mg Tablet.dr 81 Mg PO DAILY Metoprolol Tartrate 25 Mg Tablet 12.5 Mg PO BID Vitals/I & O Vital Sign - Last 24 Hours 10/10/19 10/10/19 10/10/19 10/10/19 15:19 18:16 19:00 20:10 Temp 98.0 97.9 98.0 97.9 Pulse 90 90 68 Resp 15 16 B/P (MAP) 162/70 (100) 162/70 147/58 (87) Pulse Ox 96 96 O2 Delivery Nasal Cannula Nasal Cannula Nasal Cannula O2 Flow Rate 3.0 3.0 3.0 10/10/19 10/11/19 10/11/19 10/11/19 23:00 03:00 07:13 10:18 Temp 98.0 98.2 97.8 98.0 98.2 97.8 Pulse 68 68 70 70 Resp 20 18 20 B/P (MAP) 148/65 (92) 132/55 (80) 158/61 (93) 158/61 Pulse Ox 98 91 91 O2 Delivery Nasal Cannula Nasal Cannula Nasal Cannula O2 Flow Rate 3.0 3.0 3.0 10/11/19 10/11/19 10:19 11:10 Temp 97.8 97.8 Pulse 70 97 Resp 20 B/P (MAP) 158/61 133/66 (88) Pulse Ox 97 O2 Delivery Room Air Intake and Output 10/10/19 10/10/19 10/11/19 15:00 23:00 07:00 Intake Total 550 ml 480 ml 540 ml Output Total 400 ml 350 ml 700 ml Balance 150 ml 130 ml -160 ml Justifications for Admission Other Justification CHRISSY TALBOT MD Oct 11, 2019 14:23
[2019-10-11 15:20] VITALS: BP 154/109
--- NOTE | 2019-10-11 16:50 | CARD ---
MR#: [id number] Date of Study: 10/11/2019 Ordering Physician: TYLER CARRASCO, Referring Physician: TYLER CARRASCO, Tech: Elisa Momin APPROVED REPORT EXAM: Two-dimensional and M-mode echocardiogram with Doppler and color Doppler. Other Information Quality : AverageHR: 75bpm INDICATION Congestive Heart Failure 2D DIMENSIONS RVDd2.4 (2.9-3.5cm)Left Atrium(2D)3.6 (1.6-4.0cm) IVSd1.2 (0.7-1.1cm)Aortic Root(2D)2.7 (2.0-3.7cm) LVDd4.6 (3.9-5.9cm)LVOT Diameter1.9 (1.8-2.4cm) PWd1.2 (0.7-1.1cm)LVDs3.5 (2.5-4.0cm) FS (%) 24.9 %SV48.9 ml Aortic Valve AoV Peak Harry.145.9cm/sAoV VTI28.5cm AO Peak GR.8.5mmHgLVOT VTI 15.33cm AO Mean GR.5mmHgAI P 1/2 [id number] Mitral Valve MV E Yxticymx75.4cm/sMV E Peak Gr.2mmHg MV DECEL [id number] A Swvbayzm55.3cm/s MV E Mean Gr.1mmHgE/A Ratio0.6 TDI Lateral E' P. V7.66cm/sMedial E' P. V5.66cm/s E/Lateral E'6.4E/Medial E'8.7 Tricuspid Valve TR P. Ajetqmqr074bm/sRAP [id number] TR Peak Gr.46efEpCZPT20pnQk Pulmonary Vein S1 Ziogvttd10.5cm/sS2 Bcoockoq02.49cm/s D2 Rjlkpwbd88.5cm/s LEFT VENTRICLE The left ventricle is normal size. There is borderline to mild concentric left ventricular hypertroph y. The left ventricular systolic function is normal. The Ejection Fraction is 50-55%. Wall motion con sistent with conduction abnormality. Transmitral Doppler flow pattern is Grade I-abnormal relaxation pattern. RIGHT VENTRICLE The right ventricle is normal size. There is normal right ventricular wall thickness. The right ventr icular systolic function is normal. ATRIA The left atrium size is normal. The right atrium size is normal. The interatrial septum is intact wit h no evidence for an atrial septal defect or patent foramen ovale as noted on 2-D or Doppler imaging. AORTIC VALVE The aortic valve is normal in structure and function. Doppler and Color Flow revealed trace aortic re gurgitation. There is no significant aortic valvular stenosis. Calculated aortic valve area is 1.64 c m2 with maximum pressure gradient of 9 mmHg and mean pressure gradient of 5 mmHg. MITRAL VALVE The mitral valve is normal in structure and function. There is no evidence of mitral valve prolapse. There is no mitral valve stenosis. Doppler and Color-flow revealed trace mitral regurgitation. TRICUSPID VALVE The tricuspid valve is normal in structure and function. Doppler and Color Flow revealed trace tricus pid regurgitation with an estimated PAP of 37 mmHg. There is no tricuspid valve stenosis. PULMONIC VALVE The pulmonic valve is not well visualized. Doppler and Color Flow revealed no pulmonic valvular regur gitation. GREAT VESSELS The aortic root is normal in size. The IVC is normal in size and collapses >50% with inspiration. PERICARDIAL EFFUSION There is no evidence of significant pericardial effusion. Critical Notification Critical Value: No <Conclusion> The left ventricle is normal size. The left ventricular systolic function is normal. The Ejection Fraction is 50-55%. There is borderline to mild concentric left ventricular hypertrophy. Doppler and Color Flow revealed trace aortic regurgitation. There is no significant aortic valvular stenosis. Calculated aortic valve area is 1.64 cm2 with maximum pressure gradient of 9 mmHg and mean pressure g radient of 5 mmHg. Doppler and Color-flow revealed trace mitral regurgitation. Doppler and Color Flow revealed trace tricuspid regurgitation with an estimated PAP of 37 mmHg. Signed by : Yahs Longoria MD Electronically Approved : 10/11/2019 16:50:11
--- NOTE | 2019-10-11 17:53 | PDOC ---
[facility] PROGRESS NOTE Date of Service DOS: DATE: 10/11/19 TIME: 17:51 Chief Complaint Chief Complaint Acute CHF exacerbation Chronic CHF, unknown EF CAD Diabetes mellitus type 2 Normocytic anemia Acute kidney injury due to vasomotor nephropathy Moderate malnutrition Continue IV Lasix diuresis Pending echo today Appreciate cardiology recommendations Strict I's and O's Salt restriction Daily weights R ISS and Accu-Cheks Avoid nephrotoxic agents Lovenox for DVT prophylaxis ADA diet Full code Discussed with RN and SW Disposition inpatient care, pending echo Surrogate decision maker is self History of Present Illness History of Present Illness 79-year-old female with past medical history of CAD with stent placement, diabetes type 2, dyslipidemia, hypertension, possible CHF who presents to the ED with chest pressure and feeling like she is fluid overloaded. EMS did pick her up at the patient's doctor's office and was told that her O2 was saturating at the 80s and at that time she was wearing 2 to 4 L of oxygen. Patient was given aspirin during her transportation. Patient did also have her temperature taken and it was reported at 101. Her temperature in the ED was 99.1. Patient denies any recent COVID contacts. Denies fevers, shortness of breath, abdominal pain, diarrhea, loss of smell, dysuria, or bloody stools or syncope. 10/09/2019 No acute events overnight. Patient is requiring now 12 L of nasal cannula O2 to maintain O2 saturations greater than 92%. Patient has mild dyspnea. She says that she did respond to the Bumex but she feels like she needs more diuresis. Patient's chart, labs, images were reviewed and discussed with RN 10/10/2019 No acute events overnight. Patient put out 3 L of urine output since Lasix yesterday. Creatinine is stable at 1.4. Patient has improved respiratory status and is on 2 to 3 L of nasal cannula O2 saturating greater than 92%. Patient's chart, labs, images were reviewed and discussed with RN 10/11/2019 No acute events overnight. Patient with adequate urine output after Lasix 80 mg p.o. patient with improved respiratory status. Patient is now breathing around 91 to 98% on room air at rest. Patient's chart, labs, images were reviewed and discussed with RN Vitals/I&O Vitals/I&O: Vital Signs Date Time Temp Pulse Resp B/P (MAP) Pulse Ox O2 Delivery O2 Flow Rate FiO2 10/11/19 17:29 97 133/66 10/11/19 15:20 97.5 18 91 Room Air 97.5 10/11/19 07:13 3.0 I & O 10/10/19 10/10/19 10/11/19 15:00 23:00 07:00 Intake Total 550 ml 480 ml 540 ml Output Total 400 ml 350 ml 700 ml Balance 150 ml 130 ml -160 ml Physical Exam Physical Exam: GEN: No apparent distress. Alert and oriented HEENT: Normal cephalic, atraumatic, external auditory canals are patent NECK: Supple, no JVD, no thyromegaly was noted LUNGS: Bilateral crackles HEART: RRR, S1, S2 present. Peripheral pulses intact, no obvious murmurs noted ABDOMEN: Soft, nontender. Positive bowel sounds, no organomegaly, normal bowel sounds EXTREMITIES: Bilateral +1 pedal edema General: No acute distress Heart: Regular rate Lungs: Clear, Other Abdomen: Normal bowel sounds Extremities: No cyanosis, Other (trace LE edema) Skin: No breakdown Labs Labs: Laboratory Tests Test 10/10/19 20:40 10/11/19 07:44 10/11/19 11:05 10/11/19 15:25 Glucose (Fingerstick) 163 mg/dL (70-99) 178 mg/dL (70-99) 266 mg/dL (70-99) Potassium Level 3.8 mmol/L (3.5-5.1) Test 10/11/19 15:53 Glucose (Fingerstick) 104 mg/dL (70-99) Assessment and Plan Assessmemt and Plan Problems Medical Problems: (1) Acute exacerbation of CHF (congestive heart failure) Status: Acute (2) Elevated d-dimer Status: Acute (3) Hypoxia Status: Acute (4) Suspected 2019 novel coronavirus infection Status: Acute Comment Review of Relevant I have reviewed the following items trupti (where applicable) has been applied. Justifications for Admission Other Justification SHANNAN OVIEDO MD Oct 11, 2019 17:53
[2019-10-11 19:00] VITALS: BP 156/66
[2019-10-11] MEDS: traZODone 50 MG TABLET. PO SCH (21:00)
[2019-10-11] MEDS: ATORVASTATIN CALCIUM 20 MG TABLET PO SCH (21:00)
[2019-10-11] MEDS: ENOXAPARIN 40 MG/0.4 ML SYRINGE. SQ SCH (21:00)
[2019-10-11 23:00] VITALS: BP 152/79
[2019-10-12 03:08] VITALS: BP 145/68
[2019-10-12 07:00] VITALS: BP 153/69
[2019-10-12] MEDS: INSULIN LISPRO 300 UNITS/3 ML VIAL. SQ SCH ×2 (08:00→11:56)
[2019-10-12] MEDS: LISINOPRIL 20 MG TABLET PO SCH (08:56)
[2019-10-12] MEDS: ASPIRIN ENTERIC COATED 81 MG TABLET.DR. PO SCH (08:56)
[2019-10-12] MEDS: MAGNESIUM OXIDE 400 MG TABLET PO SCH (08:56)
[2019-10-12] MEDS: CARVEDILOL 6.25 MG TABLET. PO SCH (08:56)
[2019-10-12] MEDS: FUROSEMIDE 40 MG/4 ML VIAL. IVP SCH (08:57)
[2019-10-12] MEDS: THIAMINE INJ 100 MG in IV DEXTROSE 5% 50 ML IV SCH (08:57)
[2019-10-12 10:49] VITALS: BP 125/62
[2019-10-12] MEDS ORDERED: ACETAMINOPHEN 325 MG TABLET. PO PRN ×2 (12:15)
--- NOTE | 2019-10-12 12:15 | PDOC ---
[facility] PROGRESS NOTE Date of Service DOS: DATE: 10/12/19 TIME: 12:13 Chief Complaint Chief Complaint Acute CHF exacerbation Chronic CHF, unknown EF CAD Diabetes mellitus type 2 Normocytic anemia Acute kidney injury due to vasomotor nephropathy Moderate malnutrition Continue IV Lasix diuresis Pending echo today Appreciate cardiology recommendations Strict I's and O's Salt restriction Daily weights R ISS and Accu-Cheks Avoid nephrotoxic agents Lovenox for DVT prophylaxis ADA diet Full code Discussed with RN and SW Disposition inpatient care, pending echo Surrogate decision maker is self History of Present Illness History of Present Illness Ms Fletcher is a 79-year-old female with past medical history of CAD with stent placement, diabetes type 2, dyslipidemia, hypertension, possible CHF who presents to the ED with chest pressure and feeling like she is fluid overloaded. EMS did pick her up at the patient's doctor's office and was told that her O2 was saturating at the 80s and at that time she was wearing 2 to 4 L of oxygen. Patient was given aspirin during her transportation. Patient did also have her temperature taken and it was reported at 101. Her temperature in the ED was 99.1. Patient denies any recent COVID contacts. Denies fevers, shortness of breath, abdominal pain, diarrhea, loss of smell, dysuria, or bloody stools or syncope. 10/08: No acute events overnight. Patient is requiring now 12 L of nasal cannula O2 to maintain O2 saturations greater than 92%. Patient has mild dyspnea. She says that she did respond to the Bumex but she feels like she needs more diuresis. 10/09: No acute events overnight. Patient put out 3 L of urine output since Lasix yesterday. Creatinine is stable at 1.4. Patient has improved respiratory status and is on 2 to 3 L of nasal cannula O2 saturating greater than 92%. 10/10: Lasix improved breathing. ECHO: The left ventricle is normal size. The left ventricular systolic function is normal. The Ejection Fraction is 50-55%. There is borderline to mild concentric left ventricular hypertrophy. Doppler and Color Flow revealed trace aortic regurgitation. There is no significant aortic valvular stenosis. Calculated aortic valve area is 1.64 cm2 with maximum pressure gradient of 9 mmHg and mean pressure gradient of 5 mmHg. Doppler and Color-flow revealed trace mitral regurgitation. Doppler and Color Flow revealed trace tricuspid regurgitation with an estimated PAP of 37 mmHg. Having a mild headache today. Feels her swelling is much better, asking to discharge home. Vitals/I&O Vitals/I&O: Vital Signs Date Time Temp Pulse Resp B/P (MAP) Pulse Ox O2 Delivery O2 Flow Rate FiO2 10/12/19 10:49 97.7 78 17 125/62 (83) 97 Room Air 97.7 10/11/19 08:00 3.0 I & O 0 10/11/19 10/11/19 10/12/19 15:00 23:00 07:00 Intake Total 260 ml 180 ml Output Total 350 ml Balance -90 ml 180 ml Physical Exam Physical Exam: GEN: No apparent distress. Alert and oriented HEENT: Normal cephalic, atraumatic, external auditory canals are patent NECK: Supple, no JVD, no thyromegaly was noted LUNGS: Bilateral crackles HEART: RRR, S1, S2 present. Peripheral pulses intact, no obvious murmurs noted ABDOMEN: Soft, nontender. Positive bowel sounds, no organomegaly, normal bowel sounds EXTREMITIES: Bilateral +1 pedal edema General: No acute distress Heart: Regular rate Lungs: Clear, Other Abdomen: Normal bowel sounds Extremities: No cyanosis, Other (trace LE edema) Skin: No breakdown Labs Labs: Laboratory Tests Test 10/11/19 15:25 10/11/19 15:53 10/11/19 21:04 10/12/19 08:55 Potassium Level 3.8 mmol/L (3.5-5.1) Glucose (Fingerstick) 104 mg/dL (70-99) 146 mg/dL (70-99) 156 mg/dL (70-99) Test 10/12/19 11:21 Glucose (Fingerstick) 203 mg/dL (70-99) Assessment and Plan Assessmemt and Plan Problems Medical Problems: (1) Acute exacerbation of CHF (congestive heart failure) Status: Acute (2) Elevated d-dimer Status: Acute (3) Hypoxia Status: Acute (4) Suspected 2019 novel coronavirus infection Status: Acute Comment Review of Relevant I have reviewed the following items trupti (where applicable) has been applied. Justifications for Admission Other Justification COLLIN HUYNH MD Oct 12, 2019 12:15
[2019-10-12] MEDS ORDERED: FURO40TA4 PO (14:31)
[2019-10-12] MEDS ORDERED: POTA20TA4 PO (14:31)
[2019-10-12] MEDS ORDERED: MAGN400T44 PO (14:31)
[2019-10-12] MEDS ORDERED: CARV6.2511 PO (14:31)
--- NOTE | 2019-10-12 14:33 | PDOC3 ---
Discharge Summary Visit Information Date of Admission: Oct 08, 2019 Date of Discharge: Oct 12, 2019 Admitting Diagnosis: Acute diastolic CHF Final Diagnosis Problems Medical Problems: (1) Acute exacerbation of CHF (congestive heart failure) Status: Acute (2) Elevated d-dimer Status: Acute (3) Hypoxia Status: Acute (4) Suspected 2019 novel coronavirus infection Status: Acute Brief Hospital Course Allergies Allergies Coded Allergies Type Severity Reaction Last Updated Verified No Known Drug Allergies 05/08/17 No Vital Signs Vital Signs Date Time Temp Pulse Resp B/P (MAP) Pulse Ox O2 Delivery O2 Flow Rate FiO2 10/12/19 10:49 97.7 78 17 125/62 (83) 97 Room Air 97.7 10/11/19 08:00 3.0 Lab Results Laboratory Tests Test 10/10/19 16:26 10/10/19 20:40 10/11/19 07:44 10/11/19 11:05 Glucose (Fingerstick) 134 mg/dL (70-99) 163 mg/dL (70-99) 178 mg/dL (70-99) 266 mg/dL (70-99) Test 10/11/19 15:25 10/11/19 15:53 10/11/19 21:04 10/12/19 08:55 Potassium Level 3.8 mmol/L (3.5-5.1) Glucose (Fingerstick) 104 mg/dL (70-99) 146 mg/dL (70-99) 156 mg/dL (70-99) Test 10/12/19 11:21 Glucose (Fingerstick) 203 mg/dL (70-99) Laboratory Tests Test 10/11/19 15:25 10/11/19 15:53 10/11/19 21:04 10/12/19 08:55 Potassium Level 3.8 mmol/L (3.5-5.1) Glucose (Fingerstick) 104 mg/dL (70-99) 146 mg/dL (70-99) 156 mg/dL (70-99) Test 10/12/19 11:21 Glucose (Fingerstick) 203 mg/dL (70-99) Brief Hospital Course Ms Fletcher is a 79-year-old female with past medical history of CAD with stent placement, diabetes type 2, dyslipidemia, hypertension, possible CHF who presents to the ED with chest pressure and feeling like she is fluid overloaded. EMS did pick her up at the patient's doctor's office and was told that her O2 was saturating at the 80s and at that time she was wearing 2 to 4 L of oxygen. Patient was given aspirin during her transportation. Patient did also have her temperature taken and it was reported at 101. Her temperature in the ED was 99.1. Patient denies any recent COVID contacts. Denies fevers, shortness of breath, abdominal pain, diarrhea, loss of smell, dysuria, or bloody stools or syncope. 10/08: No acute events overnight. Patient is requiring now 12 L of nasal cannula O2 to maintain O2 saturations greater than 92%. Patient has mild dyspnea. She says that she did respond to the Bumex but she feels like she needs more diuresis. 10/09: No acute events overnight. Patient put out 3 L of urine output since Lasix yesterday. Creatinine is stable at 1.4. Patient has improved respiratory status and is on 2 to 3 L of nasal cannula O2 saturating greater than 92%. 10/10: Lasix improved breathing. ECHO: The left ventricle is normal size. The left ventricular systolic function is normal. The Ejection Fraction is 50-55%. There is borderline to mild concentric left ventricular hypertrophy. Doppler and Color Flow revealed trace aortic regurgitation. There is no significant aortic valvular stenosis. Calculated aortic valve area is 1.64 cm2 with maximum pressure gradient of 9 mmHg and mean pressure gradient of 5 mmHg. Doppler and Color-flow revealed trace mitral regurgitation. Doppler and Color Flow revealed trace tricuspid regurgitation with an estimated PAP of 37 mmHg. Having a mild headache today. Feels her swelling is much better, asking to discharge home. Consults: Cardiology Problem list: Acute CHF exacerbation Chronic CHF, unknown EF CAD Diabetes mellitus type 2 Normocytic anemia Acute kidney injury due to vasomotor nephropathy Moderate malnutrition Greater than 30 minutes spent on d/c Discharge Information Condition at Discharge: Improved Follow Up: Weeks (1) Disposition/Orders: D/C to Home Scheduled Aspirin (Aspirin Ec) 81 Mg Tablet., 81 MG PO DAILY, (Reported) Entered as Reported by: ANYA LUNDBERG on 05/10/17 1130 Last Action: Continued on 10/09/19 1106 by TYLER CARRASCO Atorvastatin Calcium (Atorvastatin Calcium) 20 Mg Tablet, 20 MG PO HS for FOR CHOLESTEROL, #30 Ref 0 (Reported) Entered as Reported by: ANYA LUNDBERG on 05/10/17 1132 Last Action: Continued on 10/09/19 110 by TYLER CARRASCO Carvedilol (Carvedilol ) 6.25 Mg Tablet, 6.25 MG PO BIDWMEALS for CHF for 30 Days, #60 Ref 3 Prescribed by: COLLIN HUYNH MD on 10/12/19 1431 Furosemide (Furosemide) 40 Mg Tablet, 1 TAB PO DAILY for CHF for 30 Days, #30 Ref 5 Prescribed by: COLLIN HUYNH MD on 10/12/19 1431 Lisinopril (Lisinopril) 10 Mg Tablet, 10 MG PO DAILY for FOR HYPERTENSION, #30 Ref 0 (Reported) Entered as Reported by: ANYA LUNDBERG on 05/10/17 1131 Last Action: Continued on 10/09/191105 by TYLER CARRASCO Magnesium Oxide (Magnesium Oxide) 400 Mg Tablet, 400 MG PO BID for CHF for 30 Days, #60 Ref 3 Prescribed by: COLLIN HUYNH MD on 10/12/19 1431 Potassium Chloride (Potassium Chloride ) 20 Meq Tablet.er, 20 MEQ PO DAILY for SUPPLEMENT for 30 Days, #30 Prescribed by: COLLIN HUYNH MD on 10/12/19 1431 Ticagrelor (Brilinta) 90 Mg Tablet, 90 MG PO BID, (Reported) Entered as Reported by: ANYA LUNDBERG on 05/10/17 1131 Trazodone Hcl (Trazodone Hcl) 50 Mg Tablet, 50 MG PO HS for insomnia, (Reported) Entered as Reported by: ELOISA PADILLA on 10/09/192018 Last Taken: Unknown Dose on 10/07/19 Last Action: New Order on 10/09/192018 by ELOISA PADILLA Discontinued Medications Metoprolol Tartrate (Metoprolol Tartrate) 25 Mg Tablet, 12.5 MG PO BID for FOR HYPERTENSION, #60 Ref 0 (Reported) Entered as Reported by: ANYA LUNDBERG on 05/10/17 1129 Last Action: Continued on 10/09/191105 by TYLER CARRASCO Justicifation of Admission Dx: Justifications for Admission: Justification of Admission Dx: Yes COLLIN HUYNH MD Oct 12, 2019 14:33
--- NOTE | 2019-10-12 15:00 | NUR ---
Discharge Note: NGHIA DEY [address] [place] [address] Discharge instructions and discharge home medications reviewed with Patient and a copy given. All questions have been answered and understanding verbalized. The following instructions and handouts were given: F/U with PCP within one week. F/U with Dr. Ruth on Nov 09 at 0930. Discontinued lines and drains: Peripheral IV intact. Patient discharged to Home or Self Care with Family Member via Wheelchair
[2019-10-12 15:17] VITALS: BP 136/63
--- NOTE | 2019-10-12 17:58 | NUR ---
SW following for discharge planning. Spoke with RN and reviewed chart. Pt on room air now and 02 setup not needed per RN. Pt COVID negative. Pt to discharge home today with no further SW needs.
== END 2019-10-12 15:00 | disposition home or self-care (01) | DRG 291 ==
LOC: ER 13:57 → ED HOLD 15:49 → 6 SOUTH 17:38
PROVIDERS: ADMIT Internal Medicine; ATTEND Internal Medicine
DX: I11.0 Hypertensive heart disease with heart failure (principal); N17.0 Acute kidney failure with tubular necrosis; I50.31 Acute diastolic (congestive) heart failure; E44.0 Moderate protein-calorie malnutrition; I25.10 Atherosclerotic heart disease of native coronary artery without angina pectoris; E78.00 Pure hypercholesterolemia, unspecified; E78.5 Hyperlipidemia, unspecified; D64.9 Anemia, unspecified; E11.9 Type 2 diabetes mellitus without complications; F41.9 Anxiety disorder, unspecified; K21.9 Gastro-esophageal reflux disease without esophagitis; M19.90 Unspecified osteoarthritis, unspecified site; I08.3 Combined rheumatic disorders of mitral, aortic and tricuspid valves; Z20.828 Contact with and (suspected) exposure to other viral communicable diseases; Z96.651 Presence of right artificial knee joint; Z95.5 Presence of coronary angioplasty implant and graft; Z90.710 Acquired absence of both cervix and uterus; Z83.3 Family history of diabetes mellitus; Z68.28 Body mass index [BMI] 28.0-28.9, adult; Z82.49 Family history of ischemic heart disease and other diseases of the circulatory system; Z87.440 Personal history of urinary (tract) infections; Z79.899 Other long term (current) drug therapy; Z79.82 Long term (current) use of aspirin
CPT/HCPCS: 36415; 71045; 78580; 80048; 80053; 80061; 81001; 82553; 82962; 83605; 83735; 83880; 84132; 84443; 84484; 85025; 85379; 85610; 85730; 87040; 87086; 93005; 93306; 96374; A9540; J1650; J1815; J1940; J3411; J3475; J3490; J7060; 97116-GP; 97530-GP; 97535-GO; 99291-25; G0378; U0003-CS